=== PATIENT | male | born 1955 | race Caucasian/White ===

== ENCOUNTER 2017-10-01 11:33 | Emergency (ER) | payer OTHER ==
[2017-10-01 12:08] VITALS: TEMP 98.6; BMI 21.7
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
[2017-10-01] MEDS ORDERED: ACETAMINOPHEN 325 MG TABLET (FP) PO ONE ×2 (13:03→14:27)
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
[2017-10-01] MEDS ORDERED: ACETAMINOPHEN 325 MG TABLET (FP) ONE ×2 (14:24→14:32)
[2017-10-01 14:27] LABS: BASO % 0.5 % (0-2.0); EOS % 0.5 % (0-4.5); HEMATOCRIT 43.6 % (35.4-49); HEMOGLOBIN 15.1 GM/dL (11.7-16.9); LYMPH % 33.7 % (8-40); MCH 28.9 pg (25.7-33.7); MCHC 34.5 g/dl (32.0-35.9); MEAN CELL VOLUME 83.7 fl (80-96); MEAN PLT VOLUME 8.6 fl (7.5-11.1); MONO % 8.2 % (3.8-10.2); NEUT % 57.1 % (42.8-82.8); PLATELET COUNT 134 K/MM3 (134-434); RDW 13.2 % (11.9-15.9); WHITE BLOOD COUNT 8.4 K/mm3 (4.0-10.0)
[2017-10-01 14:46] LABS: ALBUMIN 4.1 g/dl (3.4-5.0); ANION GAP 10 (8-16); BILIRUBIN,TOTAL 1.5 mg/dL (0.2-1.0); BLOOD UREA NITROGEN 27 mg/dL (7-18); CALCIUM 9.6 mg/dL (8.5-10.1); CHLORIDE 103 mmol/L (98-107); CO2 26 mmol/L (21-32); CREATININE 0.9 mg/dL (0.7-1.3); GLUCOSE,RANDOM 102 mg/dL (74-106); SGPT/ALT 133 U/L (12-78); SODIUM 139 mmol/L (136-145); TOT PROT 8.3 g/dl (6.4-8.2)
[2017-10-01 14:48] LABS: ALK PHOS 157 U/L (45-117)
[2017-10-01 14:50] LABS: POTASSIUM 4.6 mmol/L (3.5-5.1); SGOT/AST 83 U/L (15-37)
[2017-10-01 18:41] VITALS: BP 133/77; PULSE 66
--- NOTE | 2017-10-02 11:41 | EKG ---
Test Reason : Blood Pressure : / mmHG Vent. Rate : 050 BPM Atrial Rate : 050 BPM P-R Int : 142 ms QRS Dur : 090 ms QT Int : 426 ms P-R-T Axes : 028 032 039 degrees QTc Int : 388 ms SINUS BRADYCARDIA OTHERWISE NORMAL ECG NO PREVIOUS ECGS AVAILABLE Confirmed by DUNCAN SAENZ MD ([id number]) on 10/02/2017 11:41:40 AM Referred By: Confirmed By:DUNCAN SAENZ MD
== END 2017-10-01 18:54 | disposition home or self-care (01) ==
LOC: JER 11:33
DX: R07.89 Other chest pain (principal); F17.210 Nicotine dependence, cigarettes, uncomplicated; B19.20 Unspecified viral hepatitis C without hepatic coma
CPT/HCPCS: 36415; 71046-TC-FY; 80053; 82550; 84484; 85025; 93005; 93010; 99284-25

== ENCOUNTER 2019-05-05 03:50 | Emergency (ER) | payer BC, OTHER ==
--- NOTE | 2019-05-05 04:08 | PDOC ---
Attending Attestation - Resident Resident Name: Isidro Melgar - ED Attending Attestation I have performed the following: I have examined & evaluated the patient, The case was reviewed & discussed with the resident, I agree w/resident's findings & plan - HPI HPI: 05/05/19 04:42 see resident hpi - Physicial Exam PE: 05/05/19 04:42 agree with resident exam - Medical Decision Making 05/05/19 04:43 63-year-old male requesting Xanax stating he ran out. 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
[2019-05-05 04:10] VITALS: BMI 21.7
[2019-05-05 04:34] LABS: BASO % 0.3 % (0-2.0); EOS % 0.3 % (0-4.5); HEMATOCRIT 37.2 % (35.4-49); HEMOGLOBIN 12.3 GM/dL (11.7-16.9); LYMPH % 26.3 % (8-40); MEAN CELL VOLUME 75.7 fl (80-96); MEAN PLT VOLUME 8.6 fl (7.5-11.1); MONO % 7.6 % (3.8-10.2); NEUT % 65.5 % (42.8-82.8); PLATELET COUNT 118 K/MM3 (134-434); RBC 4.91 M/mm3 (4.00-5.60); RDW 17.3 % (11.9-15.9); WHITE BLOOD COUNT 4.6 K/mm3 (4.0-10.0)
[2019-05-05] MEDS ORDERED: ALPRAZolam 1 MG TABLET PO PRN (04:34)
[2019-05-05] MEDS ORDERED: ALPRAZolam 1 MG TABLET ONE (04:36)
[2019-05-05 04:43] LABS: INR 1.15 (0.83-1.09); PROTHROMBIN TIME (PATIENT) 13.6 SEC (9.7-13.0)
[2019-05-05 04:52] LABS: ALBUMIN 3.9 g/dl (3.4-5.0); BILIRUBIN,TOTAL 0.6 mg/dL (0.2-1); BLOOD UREA NITROGEN 9.8 mg/dL (7-18); CALCIUM 9.3 mg/dL (8.5-10.1); CREATININE 0.6 mg/dL (0.55-1.3); TOT PROT 7.9 g/dl (6.4-8.2)
--- NOTE | 2019-05-05 05:11 | PDOC ---
History of Present Illness - General Chief Complaint: Headache Stated Complaint: HEADACHE Time Seen by Provider: 05/05/19 04:03 History Source: Patient Exam Limitations: No Limitations - History of Present Illness Initial Comments: 05/05/19 05:01 63M with a PMH of hep C and xanax dependence who presents to the ER stating that he ran out of his xanax. He states that he lost his last 3 days of his xanax. He describes a headache, loss of appetite, and chest pain which have all been going on for 2 days. He cannot describe any of these symptoms further. He states that he has an appointment with his psychiatrist on 05/06/19. Denies SOB, nausea, vomiting, fever, chills, vision changes, numbness, tingling, or weakness. Past History - Past Medical History Allergies/Adverse Reactions: Allergies Allergy/AdvReac Type Severity Reaction Status Date / Time morphine Allergy "clots up Verified 05/05/19 03:52 veins" Fish Containing Products AdvReac Severe Difficulty Verified 05/05/19 03:52 Breathing Home Medications: Ambulatory Orders Albuterol Sulfate Inhaler - [Ventolin HFA Inhaler -] 2 inh PO Q4H PRN MDD 8 01/19 Alprazolam [Xanax] 1 tab PO BID PRN MDD 2 02/06/18 Buprenorphine HCl/Naloxone HCl [Suboxone 8 mg-2 mg Sl Tablets] 1 tab SL TID 01/19 Alprazolam [Xanax] 1 mg PO Q12H #3 tablet MDD 2 05/05/19 Anemia: No Asthma: Yes Cancer: No Cardiac Disorders: No CVA: No COPD: Yes (uncertain) CHF: No Diabetes: No GI Disorders: Yes (colon polyps, hx constipation) Disorders: Yes (thinks has prostate problems) HTN: Yes Hypercholesterolemia: Yes Kidney Stones: (KIDNEY FAILURE.) Liver Disease: Yes (HEP C. CIRRHOSIS.) Seizures: No Thyroid Disease: No - Surgical History Orthopedic Surgery: Yes (left hip partial hip replacement 2014) - Psycho Social/Smoking Cessation Hx Smoking History: Current every day smoker Number of Cigarettes Smoked Daily: 10 Information on smoking cessation initiated: No Hx Alcohol Use: Yes (prev etoh use; stopped 7 yrs ago) Drug/Substance Use Hx: Yes Substance Use Type: Heroin (started age 13 yrs, has od'd 4 times, last use "10 yrs ago", no cocaine/mj) Hx Substance Use Treatment: Yes ([facility] graduate 2013) Review of Systems - Review of Systems Able to Perform ROS?: Yes Comments:: 05/05/19 05:11 GENERAL/CONSTITUTIONAL: No fever or chills. No weakness. HEAD, EYES, EARS, NOSE AND THROAT: No change in vision. No ear pain or discharge. No sore throat. CARDIOVASCULAR: + for chest pain. No palpitations or lightheadedness. RESPIRATORY: No cough, wheezing, shortness of breath, or hemoptysis. GASTROINTESTINAL: No abdominal pain, nausea, vomiting, diarrhea, or constipation. GENITOURINARY: No dysuria, frequency, hematuria, or change in urination. MUSCULOSKELETAL: No joint or muscle swelling or pain. No neck or back pain. SKIN: No rash or lesions. NEUROLOGIC: + for headache. No numbness, tingling, focal weakness, loss of consciousness, or change in strength/sensation. Is the patient limited Russian proficient: No *Physical Exam - Vital Signs Last Vital Signs Temp Pulse Resp BP Pulse Ox 98.2 F 77 16 144/90 100 05/05/19 03:53 05/05/19 03:53 05/05/19 03:53 05/05/19 03:53 05/05/19 03:53 - Physical Exam Comments: 05/05/19 05:12 GENERAL: Well developed, well nourished. Awake and alert. No acute distress. HEENT: Normocephalic, atraumatic. Hearing grossly normal. Moist mucous membranes. PERRLA, EOMI. No conjunctival pallor. Sclera are non-icteric. NECK: Supple. Full ROM. No JVD. CARDIOVASCULAR: Regular rate and rhythm. No murmurs, rubs, or gallops. PULMONARY: No evidence of respiratory distress. Lungs clear to auscultation bilaterally. No wheezing, rales or rhonchi. ABDOMINAL: Soft. Non-tender. Non-distended. No rebound or guarding. GENITOURINARY: No CVA tenderness bilaterally. MUSCULOSKELETAL: Normal range of motion at all joints. No bony deformities or tenderness. EXTREMITIES: No cyanosis. No clubbing. No edema. No calf tenderness or swelling. SKIN: Warm and dry. Normal capillary refill. No rashes. No jaundice. NEUROLOGICAL: Alert, awake, appropriate. Cranial nerves 2-12 grossly intact. Normal speech. Gait is normal without ataxia. PSYCHIATRIC: Cooperative. Good eye contact. Appropriate mood and affect. ED Treatment Course - LABORATORY CBC & Chemistry Diagram: 05/05/19 04:16 05/05/19 04:16 - ADDITIONAL ORDERS Additional order review: Laboratory Results 05/05/19 05/05/19 05/05/19 04:16 04:16 04:16 PT with INR 13.60 H INR 1.15 H Sodium 137 Potassium 4.0 Chloride 104 Carbon Dioxide 25 Anion Gap 8 BUN 9.8 Creatinine 0.6 Est GFR (CKD-EPI)AfAm 125.77 Est GFR (CKD-EPI)NonAf 108.52 Random Glucose 108 H Calcium 9.3 Total Bilirubin 0.6 AST 20 ALT 16 Alkaline Phosphatase 146 H Creatine Kinase 70 Troponin I < 0.02 Total Protein 7.9 Albumin 3.9 05/05/19 04:16 RBC 4.91 MCV 75.7 L MCHC 33.0 RDW 17.3 H MPV 8.6 D Neutrophils % 65.5 D Lymphocytes % 26.3 D Monocytes % 7.6 Eosinophils % 0.3 Basophils % 0.3 - RADIOLOGY Radiology Studies Ordered: Category Date Time Status CHEST X-RAY PORTABLE* [RAD] Stat Radiology 05/05/19 04:05 Ordered Medical Decision Making - Medical Decision Making 05/05/19 05:12 63M with a PMH of hep C who presents requesting a xanax refill. I-Stop checked and pt's history correlates with I-stop. Will give xanax until he sees his psychiatrist. Will obtain CTH. EKG unremarkable. Will r/o ACS w/ 1 troponin as pt has had symptoms for 2 days and has low likelihood to be ACS. 05/05/19 05:33 CTH negative. Trop negative. Will d/c with PCP f/u. Discharge - Discharge Information Problems reviewed: Yes Clinical Impression/Diagnosis: Atypical chest pain, History of substance use Condition: Good Disposition: HOME - Admission No - Additional Discharge Information Prescriptions: Alprazolam [Xanax] 1 mg PO Q12H #3 tablet MDD 2 - Follow up/Referral - Patient Discharge Instructions Patient Printed Discharge Instructions: Alprazolam Additional Instructions: Your ER visit is not complete until your follow up with your primary care physician. Please follow up with your primary care physician in 1-2 days. Please return to the ER if you have any signs or symptoms of chest pain, shortness of breath, uncontrollable fever, chills, nausea, vomiting, numbness, tingling, or weakness in any part of your body, changes in vision, or slurred speech. Please take your medications as prescribed. Please return to the ER if symptoms persist, worsen, or new symptoms arise. - Post Discharge Activity
[2019-05-05 05:38] VITALS: BP 125/86; PULSE 71; TEMP 98
--- NOTE | 2019-05-05 11:23 | EKG ---
Test Reason : Blood Pressure : / mmHG Vent. Rate : 067 BPM Atrial Rate : 067 BPM P-R Int : 154 ms QRS Dur : 088 ms QT Int : 382 ms P-R-T Axes : 044 057 051 degrees QTc Int : 403 ms NORMAL SINUS RHYTHM NORMAL ECG WHEN COMPARED WITH ECG OF 01-OCT-2017 13:14, NO SIGNIFICANT CHANGE WAS FOUND Confirmed by PARTH GRACE MD ([id number]) on 05/05/2019 11:22:54 AM Referred By: Confirmed By:PARTH GRACE MD
== END 2019-05-05 06:15 | disposition home or self-care (01) ==
LOC: JER 03:50
DX: R07.89 Other chest pain (principal); Z87.898 Personal history of other specified conditions; I10 Essential (primary) hypertension; E78.00 Pure hypercholesterolemia, unspecified; K74.60 Unspecified cirrhosis of liver; Z88.6 Allergy status to analgesic agent; Z91.013 Allergy to seafood
CPT/HCPCS: 36415; 70450-TC; 71045-TC-FY; 80053; 82550; 84484; 85025; 85610; 93005; 93010; 99282-25

== ENCOUNTER 2019-06-19 09:39 | Inpatient (IN) | payer OTHER ==
--- NOTE | 2019-06-19 09:44 | PDOC ---
History of Present Illness - General Chief Complaint: Pain, Acute Stated Complaint: ABDOMINAL PAIN Time Seen by Provider: 06/19/19 09:44 History Source: Patient Exam Limitations: No Limitations - History of Present Illness Initial Comments: 63 year old male with PMH HTN, heroine use (snorts, denied IVDU), suboxone use, liver cirrhosis 2/2 HCV, anxiety/depression on Xanax presented to ED for nausea/ vomiting/epigastric pain/generalized body aches since stopping using heroine and suboxone yesterday. Pt reported epigastric pain, constant, burning, no alleviating or aggravating factors. Pt reported he went to [facility] yesterday and was told to come back Friday for methadone maintenance. PCP: none ROS General: denied fever, chills, generalized weakness. HEENT: denied sore throat, rhinorrhea, ear pain. Cardiovascular: denied chest pain, palpitations, syncope, diaphoresis. Respiratory: denied shortness of breath, cough, sputum production, hemoptysis. Gastrointestinal: admitted to abdominal pain, nausea, vomiting. denied diarrhea , constipation, blood in stool. Genitourinary: denied dysuria, increased urinary frequency, hematuria, urinary incontinence, flank pain. Back: denied back pain. Musculoskeletal: denied joint pain, muscle pain, joint swelling. Neurological: denied headache, dizziness, numbness, tingling, weakness. Integumentary: denied rash, laceration, abrasion. Hematologic/Lymphatic: denied bruising or bleeding. PE Constitutional: Well-nourished, Well-developed, appearing stated age. HEENT: head is normocephalic, atraumatic. EOMI. PERRLA. no posterior pharyngeal erythema.no tonsillar swelling or exudates bilaterally. uvula midline. no peritonsillar swelling, tenderness or abscess. no jaw tenderness or misalignment. Neck: supple. Full ROM. Cardiovascular: regular heart rhythm. no murmurs. no pericardial friction rub. Respiratory: clear to auscultation bilaterally. no crackles, rhonchi or wheezing. no stridor. Gastrointestinal: soft, flat. mild tenderness to epigastrium. mccormick positive. normal bowel sounds. no rebound, guarding, masses. Extremities: peripheral pulses intact. no lower extremity edema. Neurological: CN 2-12 grossly intact. moves all four extremities. Psych: awake, alert, oriented x3. follows commands. answers questions appropriately. Past History - Past Medical History Allergies/Adverse Reactions: Allergies Allergy/AdvReac Type Severity Reaction Status Date / Time morphine Allergy "clots up Verified 05/05/19 03:52 veins" Fish Containing Products AdvReac Severe Difficulty Verified 05/05/19 03:52 Breathing Home Medications: Ambulatory Orders Albuterol Sulfate Inhaler - [Ventolin HFA Inhaler -] 2 inh PO Q4H PRN MDD 8 01/19 Clobetasol Propionate/Emoll [Clobetasol Emollient 0.05% Crm] 1 applic TP DAILY 06/20/19 Alprazolam [Xanax] 2 mg PO BID 06/21/19 Docusate Sodium [Colace] 100 mg PO DAILY 06/21/19 Mirtazapine [Remeron -] 15 mg PO DAILY 06/21/19 Quinapril HCl [Accupril] 40 mg PO BID 06/21/19 GI Disorders: Yes (colon polyps, hx constipation) HTN: Yes - Surgical History Orthopedic Surgery: Yes (left hip partial hip replacement 2014) - Psycho Social/Smoking Cessation Hx Smoking History: Current every day smoker Number of Cigarettes Smoked Daily: 10 Hx Alcohol Use: Yes (prev etoh use; stopped 7 yrs ago) Drug/Substance Use Hx: Yes Substance Use Type: Heroin (started age 13 yrs, has od'd 4 times, last use "10 yrs ago", no cocaine/mj) Hx Substance Use Treatment: Yes ([facility] graduate 2013) ED Treatment Course - LABORATORY CBC & Chemistry Diagram: 06/21/19 07:10 06/21/19 07:10 Medical Decision Making - Medical Decision Making 63 year old male with above PMH presented to ED for multiple complaints since stopping using heroine and stopping suboxone use. Initial Vital Signs Temp Pulse Resp BP Pulse Ox 103 F H 103 H 20 156/88 94 L 06/19/19 09:43 06/19/19 09:43 06/19/19 09:43 06/19/19 09:43 06/19/19 09:43 Febrile. Tachycardic. No tachypnea. Hypertensive. Mild hypoxia on room air. -Pt is a nicotine user Labs ordered: CBC, CMP, lipase, troponin, UA/UC, blood cultures, acetaminophen, salicylate, etoh, UDS Imaging ordered: CXR, RUQ US Medications ordered: tylenol IV, pepcid, normal saline bolus 1000 cc once, zofran 4 mg IV once, ketamine IV (0.3 mg/kg dosing) EKG performed at 112: rate 96, regular rhythm, normal axis, normal intervals, no acute ST changes. CXR report: Name: [facility] DEPARTMENT OF RADIOLOGY Phys: Nickie Chou RESIDENT : [id number] Age: 63 Sex: M [facility] Acct: [id number] Loc: [address] Exam Date: 06/19/19 Status: FABIAN [place] [id number] Unit Number: [id number] EXAM#: TYPE/EXAM: RESULT: [id number] RAD/CHEST X-RAY PORTABLE* Chest : Sepsis A single AP view of the chest has been submitted. Since the prior study of 2018, there is a slightly weaker inspiration and as a result of the cardiac silhouette appears slightly more prominent. This is slightly unfolded aorta, slight prominence of the hilar markings but clear lung [place]. An acute process is not seen. There is hand artifact projected over the left base and left heart. The angles are sharp. The soft tissues are intact. There are some degenerative changes with a scoliosis. Correlation recommended. Impression: No acute chest pathology. Left hand artifact. Reported By: Kenny Earl MD 06/19 1046 US report: US/ABDOMEN US -LIMITED Right upper quadrant abdomen ultrasound Clinical information: evaluate for cholecystitis, right upper quadrant/ epigastric pain No obvious interval change is seen in comparison to a previous ultrasound study of 03/05/2018. Cholelithiasis is noted. The gallbladder appears mildly contracted which may be on a physiologic basis versus secondary to chronic cholecystitis. As on the prior exam there is mild diffuse gallbladder wall thickening. No pericholecystic fluid is noted. The common bile duct diameter appears unremarkable measuring 0.3 cm. There is possible diffuse hepatic surface irregularity which if actually present would be indicative of cirrhosis. If clinically indicated confirmation utilizing CT or MRI may be performed. No gross mass lesion is identified. No free intraperitoneal fluid is seen. The pancreas could not be adequately evaluated due to bowel gas. There is no right hydronephrosis. Impression: No obvious interval change is seen in comparison to a 2018 ultrasound exam. Cholelithiasis is noted. Mild gallbladder contraction is again seen which may be physiologic in nature versus secondary to chronic cholecystitis. If clinically indicated correlate with one week follow -up sonography utilizing optimal preparative fasting. There is no definite biliary tract dilatation. Possible hepatic cirrhosis as noted above. The pancreas could not be evaluated due to obscuring bowel gas. Reported By: Ryan Garcia MD 06/19/19 1331 06/19/19 10:50 CBC WBC 11.0 K/mm3 (4.0-10.0) H 06/19/19 10:15 RBC 5.23 M/mm3 (4.00-5.60) 06/19/19 10:15 Hgb 12.3 GM/dL (11.7-16.9) 06/19/19 10:15 Hct 37.4 % (35.4-49) 06/19/19 10:15 MCV 71.5 fl (80-96) L 06/19/19 10:15 MCH 23.5 pg (25.7-33.7) L 06/19/19 10:15 MCHC 32.8 g/dl (32.0-35.9) 06/19/19 10:15 RDW 19.3 % (11.9-15.9) H 06/19/19 10:15 Plt Count 129 K/MM3 (134-434) L 06/19/19 10:15 MPV 8.4 fl (7.5-11.1) 06/19/19 10:15 Absolute Neuts (auto) 10.1 K/mm3 (1.5-8.0) H 06/19/19 10:15 Neutrophils % 91.4 % (42.8-82.8) H D 06/19/19 10:15 Lymphocytes % 5.0 % (8-40) L D 06/19/19 10:15 Monocytes % 2.8 % (3.8-10.2) L 06/19/19 10:15 Eosinophils % 0.1 % (0-4.5) 06/19/19 10:15 Basophils % 0.7 % (0-2.0) 06/19/19 10:15 Nucleated RBC % 0 % (0-0) 06/19/19 10:15 Mild leukocytosis with left shift. No anemia. Low MCV. CMP Lactic Acid 2.3 mmol/L (0.4-2.0) H* 06/19/19 10:15 Magnesium 2.0 mg/dL (1.8-2.4) 06/19/19 10:15 Lipase 258 U/L (73-393) 06/19/19 10:15 Additional normal saline bolus ordered. 06/19/19 11:00 CMP Sodium 135 mmol/L (136-145) L 06/19/19 10:15 Potassium 4.4 mmol/L (3.5-5.1) 06/19/19 10:15 Chloride 102 mmol/L (98-107) 06/19/19 10:15 Carbon Dioxide 25 mmol/L (21-32) 06/19/19 10:15 Anion Gap 8 MMOL/L (8-16) 06/19/19 10:15 BUN 17.3 mg/dL (7-18) 06/19/19 10:15 Creatinine 0.9 mg/dL (0.55-1.3) 06/19/19 10:15 Est GFR (CKD-EPI)AfAm 106.46 06/19/19 10:15 Est GFR (CKD-EPI)NonAf 91.86 06/19/19 10:15 Random Glucose 131 mg/dL (74-106) H 06/19/19 10:15 Calcium 9.0 mg/dL (8.5-10.1) 06/19/19 10:15 Total Bilirubin 1.4 mg/dL (0.2-1) H 06/19/19 10:15 AST 33 U/L (15-37) 06/19/19 10:15 ALT 24 U/L (13-61) 06/19/19 10:15 Alkaline Phosphatase 174 U/L (45-117) H 06/19/19 10:15 Troponin I < 0.02 ng/ml (0.00-0.05) 06/19/19 10:15 Total Protein 8.3 g/dl (6.4-8.2) H 06/19/19 10:15 Albumin 4.0 g/dl (3.4-5.0) 06/19/19 10:15 Mild hyponatremia - IVF running No JUAREZ. No transaminitis. T bili 1.4 06/19/19 11:35 Vital Signs Temperature 103.0 F H 06/19/19 11:30 Pulse Rate 94 H 06/19/19 11:30 Respiratory Rate 20 06/19/19 11:30 Blood Pressure 126/71 06/19/19 11:30 Tachycardia improving. Fever still present. Medications ordered: Toradol 15 mg IV once 06/19/19 12:28 Urine Test Results Urine Color Yellow 06/19/19 10:49 Urine Appearance Clear 06/19/19 10:49 Urine pH >= 9.0 (5.0-8.0) H D 06/19/19 10:49 Ur Specific [place] 1.019 (1.010-1.035) 06/19/19 10:49 Urine Protein Trace (NEGATIVE) 06/19/19 10:49 Urine Glucose (UA) Negative (NEGATIVE) 06/19/19 10:49 Urine Ketones Negative (NEGATIVE) 06/19/19 10:49 Urine Blood 1+ (NEGATIVE) H 06/19/19 10:49 Urine Nitrite Negative (NEGATIVE) 06/19/19 10:49 Urine Bilirubin Negative (NEGATIVE) 06/19/19 10:49 Ur Leukocyte Esterase Negative (NEGATIVE) 06/19/19 10:49 UDS positive for benzo, opioids. Negatie for UTI. VBG negative for acidosis. 06/19/19 13:32 Abdominal US reported. Radiology reported that the examination is similar to prior US, but pt is acutely in pain, febrile. Concern for acute cholecystitis. Will cover with Flagyl and Ceftraixone. Dr. Correa consulted. I spoke with Dr. Heredia about the patient, who accepted the patient for admission to med/surg. Pending admission. Discharge - Discharge Information Problems reviewed: Yes Clinical Impression/Diagnosis: Cholecystitis Condition: Stable - Admission Yes - Follow up/Referral - Patient Discharge Instructions - Post Discharge Activity
[2019-06-19] MEDS ORDERED: FAMOTIDINE 20 MG/50 ML IVPB 20 MG/50 ML MG IVPB ONE ×2 (10:01→10:27)
[2019-06-19] MEDS ORDERED: SODIUM CHLORIDE 1,000 ML IV STA ×2 (10:01→10:51)
[2019-06-19] MEDS ORDERED: ONDANSETRON 4 MG/2 ML VIAL IVPUSH ONE (10:01)
[2019-06-19] MEDS ORDERED: ACETAMINOPHEN 1000 MG/100 ML VIAL (NON FORMULARY) IVPB ONE (10:14)
--- NOTE | 2019-06-19 10:19 | PDOC ---
Attending Attestation - Resident Resident Name: Nickie Chou - ED Attending Attestation I have performed the following: I have examined & evaluated the patient, The case was reviewed & discussed with the resident, I agree w/resident's findings & plan - HPI HPI: 06/19/19 10:20 63-year-old male with history of hepatitis C, Xanax dependence, cirrhosis, HTN, anxiety, depression presenting with fever, nausea/vomiting/epigastric pain/ generalized body aches since stopping using heroine and suboxone yesterday. Pt reported epigastric pain, constant, burning, +sputum production and mild cough, no alleviating or aggravating factors. Pt reported he went to [facility] yesterday and was told to come back Friday for methadone maintenance. he admits to accidentally throwing out his xanax and prior suboxone. 06/19/19 13:51 - Physicial Exam PE: 06/19/19 10:19 Agree with the resident's HPI and PE as documented in the electronic medical record. malaised appearing, EOMI, PERRL, nl conjunctiva, anicteric; neck supple. lungs clear,+tachycardia, abdomen soft +diffuse abdominal tenderness, +epigastric And RUQ tenderness, +Arias's, no rebound, guarding. Back nontender. VILLALBA x4, no focal neuro deficits. No peripheral edema. normal color for ethnicity, WWP. 06/19/19 10:19 06/19/19 10:42 - Medical Decision Making 06/19/19 10:19 Vital Signs Temp Pulse Resp BP Pulse Ox 103 F H 103 H 20 156/88 94 L 06/19/19 09:43 06/19/19 09:43 06/19/19 09:43 06/19/19 09:43 06/19/19 09:43 Vital signs notable for fever T-max 103 and tachycardia 103, mildly hypertensive , oxygen saturation 94% on room air. DDx abdominal pain: Renal colic, biliary colic, metabolic/electrolyte derangements. GERD, PUD, esophageal spasm, pancreatitis, hepatitis, constipation , colitis, gastroenteritis, cholecystitis, UTI, pyelonephritis, ileus, SBO, medication side effect, hernia, appendicitis, diverticulitis, SBP. msk strain, mesenteric adenitis, psoas abscess. Given medications IV ketamine, tylenol/toradol, IVF with clinical improvement. All diagnostics tests reviewed labs and lytes with mild leukocytosis >11K, remainder of labs/LFTs/lipase normal. flu neg. cxr clear, no pna. Utox +benzo and opioids, c/w history. biliary sono +GBW thickening, multiple stones and sludge, cbd appears normal. 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 admit to medical service, surg cs, IVF/pain control, further imaging vs surgery. 06/19/19 13:51 06/19/19 14:47 Heart Score/ECG Review #1 ECG reviewed & interpreted by me at: 11:15 General ECG Interpretation: Sinus Rhythm, Normal Rate, Normal Intervals 06/19/19 11:40 EKG normal sinus rhythm at 96 bpm., no interval abnormalities, narrow QRS, ST and T wave segments and morphology normal. Nonspecific T wave abnormalities in III, PACs
[2019-06-19] MEDS ORDERED: ACETAMINOPHEN INJECTION 100 ML IVPB ONE (10:27)
[2019-06-19] MEDS ORDERED: ONDANSETRON 4 MG/2 ML VIAL ONE (10:27)
[2019-06-19 10:33] LABS: BASO % 0.7 % (0-2.0); EOS % 0.1 % (0-4.5); HEMATOCRIT 37.4 % (35.4-49); HEMOGLOBIN 12.3 GM/dL (11.7-16.9); MCH 23.5 pg (25.7-33.7); MCHC 32.8 g/dl (32.0-35.9); MEAN CELL VOLUME 71.5 fl (80-96); MEAN PLT VOLUME 8.4 fl (7.5-11.1); MONO % 2.8 % (3.8-10.2); NEUT % 91.4 % (42.8-82.8); PLATELET COUNT 129 K/MM3 (134-434); RBC 5.23 M/mm3 (4.00-5.60); RDW 19.3 % (11.9-15.9)
[2019-06-19] MEDS ORDERED: KETAMINE HCL 200 MG/20 ML VIAL IVPB ONE (10:40)
[2019-06-19 10:41] LABS: COCAINE, UR NEGATIVE ng/ml (CUTOFF=300); METHADONE, UR NEGATIVE ng/ml (CUTOFF=300); PHENCYCLIDINE,URINE NEGATIVE ng/ml (CUTOFF=25); URINE AMPHETAMINES NEGATIVE ng/ml (CUTOFF=500); URINE BARBITURATES NEGATIVE ng/ml (CUTOFF=200)
[2019-06-19 10:46] LABS: INR 1.23 (0.83-1.09); PROTHROMBIN TIME (PATIENT) 14.5 SEC (9.7-13.0)
[2019-06-19 10:50] LABS: OPIATES, URI POSITIVE ng/ml (CUTOFF=300); URINE BENZODIAZEPINES POSITIVE ng/ml (CUTOFF=200)
[2019-06-19 10:51] LABS: ALK PHOS 174 U/L (45-117); ANION GAP 8 MMOL/L (8-16); BILIRUBIN,TOTAL 1.4 mg/dL (0.2-1); BLOOD UREA NITROGEN 17.3 mg/dL (7-18); CHLORIDE 102 mmol/L (98-107); CO2 25 mmol/L (21-32); CREATININE 0.9 mg/dL (0.55-1.3); GLUCOSE,RANDOM 131 mg/dL (74-106); POTASSIUM 4.4 mmol/L (3.5-5.1); SGOT/AST 33 U/L (15-37); SGPT/ALT 24 U/L (13-61); SODIUM 135 mmol/L (136-145); TOT PROT 8.3 g/dl (6.4-8.2)
[2019-06-19 11:02] LABS: VENOUS PC02 43.5 mmHg (38-52); VENOUS PO2 < 49 mmHg (28-48)
[2019-06-19 11:19] LABS: EPI CELLS 3.5 /HPF (0-5/HPF); HYALINE CASTS 2 /lpf (0-8); PH,URINE >= 9.0 (5.0-8.0); URINE APPEARANCE CLEAR; URINE BACTERIA 6.5 /hpf (NEGATIVE); URINE BILIRUBIN NEGATIVE (NEGATIVE); URINE COLOR YELLOW; URINE GLUCOSE (UA) NEGATIVE (NEGATIVE); URINE KETONE NEGATIVE (NEGATIVE); URINE LEUK ESTERASE NEGATIVE (NEGATIVE); URINE NITRITE NEGATIVE (NEGATIVE); URINE PROTEIN TRACE (NEGATIVE); URINE RBC 9 /hpf (0-4); URINE WBC 1 /hpf (0-5)
[2019-06-19 11:21] LABS: ANISOCYTOSIS 2+; PLATELET ESTIMATE DECREASED
[2019-06-19] MEDS ORDERED: KETAMINE HCL 200 MG/20 ML VIAL ONE (11:23)
[2019-06-19] MEDS ORDERED: KETOROLAC TROMETHAMINE 15 MG/ML VIAL IVPUSH ONE (11:38)
[2019-06-19] MEDS ORDERED: KETOROLAC TROMETHAMINE 15 MG/ML VIAL ONE (11:44)
[2019-06-19] MEDS ORDERED: CEFTRIAXONE 1 GM in DEXTROSE 5%-WATER - 100 ML IVPB ONE (13:21)
[2019-06-19] MEDS ORDERED: SODIUM CHLORIDE 1,000 ML IV SCH (14:00)
[2019-06-19] MEDS ORDERED: CEFTRIAXONE 1 GM/50 ML BAG ONE (14:11)
--- NOTE | 2019-06-19 15:02 | HP ---
CHIEF COMPLAINT:abd pain, fever, PCP:NONE HISTORY OF PRESENT ILLNESS: Henry Goldman is a 63-year-old male with history of hepatitis C, Xanax dependence, cirrhosis, HTN, anxiety, depression presented to ED with c/o generalized body pain, epigastric pain, fever, n/v that started yesterday after pt stopped taking suboxone and heroine. ER records reviewed, pt seen in ED, unable to obtain history, pt medicated for pain, sedated. Arousable to tactile stimuli. no skin breakdown noted, no ascites, no cough observed. ER course was notable for: (1)Temp 103 (2)WBC 11.0 (3)US contracted GB Recent Travel: PAST MEDICAL HISTORY: Hepatitis C Anxiety Heroine abuse Cirrhosis HTN Depression PAST SURGICAL HISTORY: Social History: Smoking:unable to obtain Alcohol: Drugs: hx of heroine Allergies morphine Allergy (Verified 05/05/19 03:52) "clots up veins" Fish Containing Products Adverse Reaction (Severe, Verified 05/05/19 03:52) Difficulty Breathing HOME MEDICATIONS: Home Medications Medication Instructions Recorded Albuterol Sulfate Inhaler - 2 inh PO Q4H PRN MDD 8 02/06/18 [Ventolin HFA Inhaler -] Alprazolam [Xanax] 1 tab PO BID PRN MDD 2 02/06/18 Buprenorphine HCl/Naloxone HCl 1 tab SL TID 02/06/18 [Suboxone 8 mg-2 mg Sl Tablets] Alprazolam [Xanax] 1 mg PO Q12H #3 tablet MDD 2 05/05/19 REVIEW OF SYSTEMS unable to obtain, pt medicated for pain, asleep PHYSICAL EXAMINATION Vital Signs - 24 hr 06/19/19 06/19/19 06/19/19 09:43 11:30 13:41 Temperature 103 F H 103.0 F H 100.3 F H Pulse Rate 103 H Pulse Rate [ 94 H Apical] Respiratory 20 20 Rate Blood Pressure 156/88 Blood Pressure 126/71 [Left Arm] O2 Sat by Pulse 94 L 20 L Oximetry (%) GENERAL: asleep, arousable, not able to answer questions HEAD: Normal with no signs of trauma. EYES: Pupils equal, round and reactive to light, extraocular movements intact, sclera anicteric, conjunctiva clear. No lid lag. EARS, NOSE, THROAT: Ears normal, nares patent, oropharynx clear without exudates. Moist mucous membranes. NECK: Normal range of motion, supple without lymphadenopathy, JVD, or masses. LUNGS: Breath sounds equal, clear to auscultation bilaterally. No wheezes, and no crackles. No accessory muscle use. HEART: Regular rate and rhythm, normal S1 and S2 without murmur, rub or gallop. ABDOMEN: Soft, nontender, not distended, normoactive bowel sounds, no guarding, no rebound, no masses. No hepatomegaly or splenomegaly. MUSCULOSKELETAL: Normal range of motion at all joints. No bony deformities or tenderness. No CVA tenderness. UPPER EXTREMITIES: 2+ pulses, warm, well-perfused. No cyanosis. No clubbing. No peripheral edema. LOWER EXTREMITIES: 2+ pulses, warm, well-perfused. No calf tenderness. No peripheral edema. NEUROLOGICAL: deferred, pt asleep PSYCHIATRIC: Cooperative. Good eye contact. Appropriate mood and affect. SKIN: Warm, dry, normal turgor, no rashes or lesions noted, normal capillary refill. Laboratory Results - last 24 hr 06/19/19 06/19/19 06/19/19 10:06 10:15 10:15 WBC RBC Hgb Hct MCV MCH MCHC RDW Plt Count MPV Absolute Neuts (auto) Neutrophils % Neutrophils % (Manual) Band Neutrophils % Lymphocytes % Lymphocytes % (Manual) Monocytes % Monocytes % (Manual) Eosinophils % Eosinophils % (Manual) Basophils % Basophils % (Manual) Myelocytes % (Man) Promyelocytes % (Man) Blast Cells % (Manual) Nucleated RBC % Metamyelocytes Platelet Estimate Polychromasia Anisocytosis PT with INR 14.50 H INR 1.23 H PTT (Actin FS) 34.0 VBG pH 7.40 POC VBG pCO2 43.5 POC VBG pO2 < 49 H VBG HCO3 26.1 VBG O2 Sat (Adiel) 21.1 L VBG Base Excess 1.5 Sodium Potassium Chloride Carbon Dioxide Anion Gap BUN Creatinine Est GFR (CKD-EPI)AfAm Est GFR (CKD-EPI)NonAf Random Glucose Lactic Acid Calcium Magnesium Total Bilirubin AST ALT Alkaline Phosphatase Troponin I Total Protein Albumin Lipase Urine Color Urine Appearance Urine pH Ur Specific [place] Urine Protein Urine Glucose (UA) Urine Ketones Urine Blood Urine Nitrite Urine Bilirubin Urine Urobilinogen Ur Leukocyte Esterase Urine WBC (Auto) Urine RBC (Auto) Urine Casts (Auto) U Epithel Cells (Auto) Urine Bacteria (Auto) Salicylates < 1.7 L Opiates Screen Methadone Screen Acetaminophen Barbiturate Screen Phencyclidine Screen Ur Amphetamines Screen MDMA (Ecstasy) Screen Benzodiazepines Screen Cocaine Screen U Marijuana (THC) Screen Alcohol, Quantitative Influenza A (Rapid) Influenza B (Rapid) 06/19/19 06/19/19 06/19/19 10:15 10:15 10:15 WBC 11.0 H RBC 5.23 Hgb 12.3 Hct 37.4 MCV 71.5 L MCH 23.5 L MCHC 32.8 RDW 19.3 H Plt Count 129 L MPV 8.4 Absolute Neuts (auto) 10.1 H Neutrophils % 91.4 H D Neutrophils % (Manual) 91.0 H Band Neutrophils % 2.0 Lymphocytes % 5.0 L D Lymphocytes % (Manual) 2.0 L Monocytes % 2.8 L Monocytes % (Manual) 1 L Eosinophils % 0.1 Eosinophils % (Manual) 0.0 Basophils % 0.7 Basophils % (Manual) 0.0 Myelocytes % (Man) 0 Promyelocytes % (Man) 0 Blast Cells % (Manual) 0 Nucleated RBC % 0 Metamyelocytes 0 Platelet Estimate Decreased Polychromasia 1+ Anisocytosis 2+ PT with INR INR PTT (Actin FS) VBG pH POC VBG pCO2 POC VBG pO2 VBG HCO3 VBG O2 Sat (Adiel) VBG Base Excess Sodium 135 L Potassium 4.4 Chloride 102 Carbon Dioxide 25 Anion Gap 8 BUN 17.3 Creatinine 0.9 Est GFR (CKD-EPI)AfAm 106.46 Est GFR (CKD-EPI)NonAf 91.86 Random Glucose 131 H Lactic Acid Calcium 9.0 Magnesium Total Bilirubin 1.4 H AST 33 ALT 24 Alkaline Phosphatase 174 H Troponin I < 0.02 Total Protein 8.3 H Albumin 4.0 Lipase Urine Color Urine Appearance Urine pH Ur Specific [place] Urine Protein Urine Glucose (UA) Urine Ketones Urine Blood Urine Nitrite Urine Bilirubin Urine Urobilinogen Ur Leukocyte Esterase Urine WBC (Auto) Urine RBC (Auto) Urine Casts (Auto) U Epithel Cells (Auto) Urine Bacteria (Auto) Salicylates Opiates Screen Methadone Screen Acetaminophen --noresult-- Barbiturate Screen Phencyclidine Screen Ur Amphetamines Screen MDMA (Ecstasy) Screen Benzodiazepines Screen Cocaine Screen U Marijuana (THC) Screen Alcohol, Quantitative < 3.0 Influenza A (Rapid) Influenza B (Rapid) 06/19/19 06/19/19 06/19/19 10:15 10:15 10:15 WBC RBC Hgb Hct MCV MCH MCHC RDW Plt Count MPV Absolute Neuts (auto) Neutrophils % Neutrophils % (Manual) Band Neutrophils % Lymphocytes % Lymphocytes % (Manual) Monocytes % Monocytes % (Manual) Eosinophils % Eosinophils % (Manual) Basophils % Basophils % (Manual) Myelocytes % (Man) Promyelocytes % (Man) Blast Cells % (Manual) Nucleated RBC % Metamyelocytes Platelet Estimate Polychromasia Anisocytosis PT with INR INR PTT (Actin FS) VBG pH POC VBG pCO2 POC VBG pO2 VBG HCO3 VBG O2 Sat (Adiel) VBG Base Excess Sodium Potassium Chloride Carbon Dioxide Anion Gap BUN Creatinine Est GFR (CKD-EPI)AfAm Est GFR (CKD-EPI)NonAf Random Glucose Lactic Acid 2.3 H* Calcium Magnesium 2.0 Total Bilirubin AST ALT Alkaline Phosphatase Troponin I Total Protein Albumin Lipase 258 Urine Color Urine Appearance Urine pH Ur Specific [place] Urine Protein Urine Glucose (UA) Urine Ketones Urine Blood Urine Nitrite Urine Bilirubin Urine Urobilinogen Ur Leukocyte Esterase Urine WBC (Auto) Urine RBC (Auto) Urine Casts (Auto) U Epithel Cells (Auto) Urine Bacteria (Auto) Salicylates Opiates Screen Positive A* Methadone Screen Negative Acetaminophen Barbiturate Screen Negative Phencyclidine Screen Negative Ur Amphetamines Screen Negative MDMA (Ecstasy) Screen Negative Benzodiazepines Screen Positive A* Cocaine Screen Negative U Marijuana (THC) Screen Negative Alcohol, Quantitative Influenza A (Rapid) Influenza B (Rapid) 06/19/19 06/19/19 10:49 11:45 WBC RBC Hgb Hct MCV MCH MCHC RDW Plt Count MPV Absolute Neuts (auto) Neutrophils % Neutrophils % (Manual) Band Neutrophils % Lymphocytes % Lymphocytes % (Manual) Monocytes % Monocytes % (Manual) Eosinophils % Eosinophils % (Manual) Basophils % Basophils % (Manual) Myelocytes % (Man) Promyelocytes % (Man) Blast Cells % (Manual) Nucleated RBC % Metamyelocytes Platelet Estimate Polychromasia Anisocytosis PT with INR INR PTT (Actin FS) VBG pH POC VBG pCO2 POC VBG pO2 VBG HCO3 VBG O2 Sat (Adiel) VBG Base Excess Sodium Potassium Chloride Carbon Dioxide Anion Gap BUN Creatinine Est GFR (CKD-EPI)AfAm Est GFR (CKD-EPI)NonAf Random Glucose Lactic Acid Calcium Magnesium Total Bilirubin AST ALT Alkaline Phosphatase Troponin I Total Protein Albumin Lipase Urine Color Yellow Urine Appearance Clear Urine pH >= 9.0 H D Ur Specific [place] 1.019 Urine Protein Trace Urine Glucose (UA) Negative Urine Ketones Negative Urine Blood 1+ H Urine Nitrite Negative Urine Bilirubin Negative Urine Urobilinogen 1.0 Ur Leukocyte Esterase Negative Urine WBC (Auto) 1 Urine RBC (Auto) 9 Urine Casts (Auto) 2 U Epithel Cells (Auto) 3.5 Urine Bacteria (Auto) 6.5 Salicylates Opiates Screen Methadone Screen Acetaminophen Barbiturate Screen Phencyclidine Screen Ur Amphetamines Screen MDMA (Ecstasy) Screen Benzodiazepines Screen Cocaine Screen U Marijuana (THC) Screen Alcohol, Quantitative Influenza A (Rapid) Negative Influenza B (Rapid) Negative ASSESSMENT/PLAN: Henry Goldman is a 63 yr old M, medical condition hepatitis C, heroine use, Xanax dependence, cirrhosis, HTN, anxiety, depression admitted for Admitting Diagnosis Acute on chronic Cholecystitis Chronic Condition Hep C Heroine abuse Depression Anxiety Cirrhosis A/P: #Acute on chronic Cholecystitis -NPO -Pain mgt-toradol PRN -Surgery consult (d/w Dr. Correa in ED) -US abd -mild contraction of GB, physiologic vs chronic cholecystitis -HIDA scan -received IV Rocephin, Flagyl in ED- will cont #Fever, unknown source -WBC 11, Temp 103 -UA neg -chest xray no acute process -Blood cx in process -will order CT abd/pelvis #hx Hep C #Cirrhosis,chronic -LFTS wnl -T. Bili 1.4 -monitor labs #Depression,chronic #Anxiety -c/w xanax #hx heroine use -pt last use yesterday -also on suboxone Full Code FEN Fluid: IVF Electrolytes: replete PRN Nutrition: NPO DVT prophylaxis Heparin SQ Visit type - Emergency Visit Emergency Visit: Yes ED Registration Date: 06/19/19 Care time: The patient presented to the Emergency Department on the above date and was hospitalized for further evaluation of their emergent condition. - New Patient This patient is new to me today: Yes Date on this admission: 06/19/19 - Critical Care Critical Care patient: No
[2019-06-19] MEDS: SODIUM CHLORIDE 1,000 ML IV SCH ×2 (16:31→17:47)
[2019-06-19 18:01] VITALS: BMI 23.6
[2019-06-19] MEDS: KETOROLAC TROMETHAMINE 15 MG/ML VIAL IVPUSH PRN (20:26)
[2019-06-19] MEDS: ALPRAZolam 1 MG TABLET PO PRN (21:06)
--- NOTE | 2019-06-19 22:01 | CONSULT ---
Consult Consult Specialty:: General Surgery Referred by:: Joaquín Chou Reason for Consultation:: cholecystitis - History of Present Illness Chief Complaint: epigastric pain, n/v, f/c History of Present Illness: 63yo M with HTN, hep C, cirrhosis, asthma, anxiety, depression, heroin abuse, last shot something he thought was heroin into left hand few days ago, which made him "very sick" - N/V, epigastric pain, fever/chills. He uses heroin by snorting (and sometimes IV use) at times, despite being on suboxone for 5 years , until 1-2 weeks ago, when he decided to stop using it altogether after a disagreement with his doctor. He also had a left hip replacement several months ago, and has chronic low back disc problems, for which he takes percocet about once daily (prn), which he last had yesterday but is now out. He came to ER and still had vomiting today. In ER, he had fever 103, wbc 11 left-shifted, elevated bili 1.4 and mild alk phos elevation, normal lipase and AST/ALT, no UTI , and was tender epigastric and RUQ. He had US showing gallstones and mildly contracted gallbladder, similar to 16 mos prior, with mildly thickened wall ( physiologic vs chronic), normal cbd, and cirrhotic appearing liver. He was given IV fluids, antibiotics, antiemetic and H2 pritesh, ketamine and now toradol for pain. He is admitted to medicine with CT and HIDA pending. Surgery was asked to assess. He is seen and examined in bed. He complains of headache, nausea and heartburn, as well as epigastric pain. Lactate is 1.8. Temp is now 99s. He reports last BM 2 days ago, denies constipation or diarrhea. No recent cold/illness, occasional palpitations, some SOB on exertion/climbing stairs. He also has psoriasis in areas. He states he has a small boil/abscess in left perianal area that is chronic and occasionally flares, which smells badly when he is able to make it drain/open with warm water and sometimes squeezing it. It does not appear to be present at this time. - History Source History Provided By: Patient Limitations to Obtaining History: No Limitations - Past Medical History Cardio/Vascular: Yes: HTN Pulmonary: Yes: Asthma Gastrointestinal: Yes: Other (h/o venous clipping on EGD) Hepatobiliary: Yes: Cirrhosis, Hepatitis C Psych: Yes: Addictions (heroin), Anxiety, Depression Musculoskeletal: Yes: Chronic low back pain (L4-5 back problems) Dermatology: Yes: Psoriasis - Past Surgical History Past Surgical History: Yes: Colonoscopy (earlier this year), Joint Replacement ( left hip few months ago), Upper Endoscopy - Alcohol/Substance Use Hx Alcohol Use: Yes (drank for 40 yrs, stopped 2005) History of Substance Use: reports: Heroin (snort and IV use - last few days ago ("someone gave me something that made me very sick")), Prescription (xanax). 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 Home Medications - Allergies Allergies/Adverse Reactions: Allergies Allergy/AdvReac Type Severity Reaction Status Date / Time morphine Allergy "clots up Verified 05/05/19 03:52 veins" Fish Containing Products AdvReac Severe Difficulty Verified 05/05/19 03:52 Breathing - Home Medications Home Medications: Ambulatory Orders Albuterol Sulfate Inhaler - [Ventolin HFA Inhaler -] 2 inh PO Q4H PRN MDD 8 01/19 Alprazolam [Xanax] 1 tab PO BID PRN MDD 2 02/06/18 Buprenorphine HCl/Naloxone HCl [Suboxone 8 mg-2 mg Sl Tablets] 1 tab SL TID 01/19 Alprazolam [Xanax] 1 mg PO Q12H #3 tablet MDD 2 05/05/19 Home Medications (free text): Pt reports Xanax is 2 MG BID for 5 years, from Dr. Lopez at [facility]. He also uses Percocet prn for back/hip pain, usually about once a day. Inhaler use for asthma 1-2x daily, last yesterday. Stopped Suboxone use 1-2 weeks ago. Family Medical History Family History: Unremarkable (noncontributory) Review of Systems - Review of Systems Constitutional: reports: Chills, Fever Eyes: denies: Blurred Vision, Recent Change in Vision HENT: denies: Difficult Swallowing, Throat Pain Neck: denies: Swollen Glands, Tenderness Cardiovascular: reports: Palpitations (occasionally). denies: Chest Pain Respiratory: reports: SOB on Exertion. denies: Cough, SOB Gastrointestinal: reports: Abdominal Pain (with hpi), Indigestion, Nausea (with hpi), Vomiting (with hpi). denies: Constipation, Diarrhea Genitourinary: denies: Burning, Dysuria Musculoskeletal: reports: Back Pain, Joint Pain (left hip). denies: Muscle Pain Integumentary: reports: Other (psoriasis elbows, waistline). denies: Change in Color, Rash Neurological: reports: Headache. denies: Dizziness Psychiatric: reports: Anxiety, Depression Physical Exam Vital Signs: Vital Signs Temperature 99.4 F 06/19/19 18:00 Pulse Rate 78 06/19/19 18:00 Respiratory Rate 16 06/19/19 18:06 Blood Pressure 116/64 06/19/19 18:00 O2 Sat by Pulse Oximetry (%) 97 06/19/19 18:06 Constitutional: Yes: Well Nourished, No Distress, Calm Eyes: Yes: Conjunctiva Clear, EOM Intact. No: Sclera Icterus HENT: Yes: Atraumatic, Normocephalic Neck: Yes: Supple, Trachea Midline Cardiovascular: Yes: Regular Rate and Rhythm Respiratory: Yes: Regular, CTA Bilaterally Gastrointestinal: Yes: Normal Bowel Sounds, Soft, Tenderness (RUQ), Tenderness, Epigastrium. No: Distention, Tenderness, Rebound (no rebound or guarding) ...Rectal Exam: Yes: Deferred. No: Hemorrhoids/External, Inflammation Renal/: No: CVA Tenderness - Left, CVA Tenderness - Right Musculoskeletal: No: Joint Stiffness, Joint Swelling Extremities: Yes: Other (psoriasis on left elbow, small patches on other areas) . No: Cool, Cyanosis Edema: No Peripheral Pulses WNL: Yes Integumentary: Yes: Tattoos. No: Jaundice, Rash Neurological: Yes: Alert, Oriented Psychiatric: Yes: Alert, Oriented Labs: CBC, BMP 06/19/19 10:15 06/19/19 10:15 CMP Sodium 135 mmol/L (136-145) L 06/19/19 10:15 Potassium 4.4 mmol/L (3.5-5.1) 06/19/19 10:15 Chloride 102 mmol/L (98-107) 06/19/19 10:15 Carbon Dioxide 25 mmol/L (21-32) 06/19/19 10:15 Anion Gap 8 MMOL/L (8-16) 06/19/19 10:15 BUN 17.3 mg/dL (7-18) 06/19/19 10:15 Creatinine 0.9 mg/dL (0.55-1.3) 06/19/19 10:15 Est GFR (CKD-EPI)AfAm 106.46 06/19/19 10:15 Est GFR (CKD-EPI)NonAf 91.86 06/19/19 10:15 Random Glucose 131 mg/dL (74-106) H 06/19/19 10:15 Lactic Acid 1.8 mmol/L (0.4-2.0) 06/19/19 19:39 Calcium 9.0 mg/dL (8.5-10.1) 06/19/19 10:15 Magnesium 2.0 mg/dL (1.8-2.4) 06/19/19 10:15 Total Bilirubin 1.4 mg/dL (0.2-1) H 06/19/19 10:15 AST 33 U/L (15-37) 06/19/19 10:15 ALT 24 U/L (13-61) 06/19/19 10:15 Alkaline Phosphatase 174 U/L (45-117) H 06/19/19 10:15 Troponin I < 0.02 ng/ml (0.00-0.05) 06/19/19 10:15 Total Protein 8.3 g/dl (6.4-8.2) H 06/19/19 10:15 Albumin 4.0 g/dl (3.4-5.0) 06/19/19 10:15 Lipase 258 U/L (73-393) 06/19/19 10:15 INR, PTT INR 1.23 (0.83-1.09) H 06/19/19 10:15 Urine Test Results Urine Color Yellow 06/19/19 10:49 Urine Appearance Clear 06/19/19 10:49 Urine pH >= 9.0 (5.0-8.0) H D 06/19/19 10:49 Ur Specific [place] 1.019 (1.010-1.035) 06/19/19 10:49 Urine Protein Trace (NEGATIVE) 06/19/19 10:49 Urine Glucose (UA) Negative (NEGATIVE) 06/19/19 10:49 Urine Ketones Negative (NEGATIVE) 06/19/19 10:49 Urine Blood 1+ (NEGATIVE) H 06/19/19 10:49 Urine Nitrite Negative (NEGATIVE) 06/19/19 10:49 Urine Bilirubin Negative (NEGATIVE) 06/19/19 10:49 Ur Leukocyte Esterase Negative (NEGATIVE) 06/19/19 10:49 Imaging - Results Chest X-ray: Report Reviewed (no acute pathology) Cat Scan: Pending Ultrasound: Report Reviewed, Image Reviewed (+ gallstones, contracted gallbladder with mild wall thickening, cbd not dilated, similar to 16 mos prior ; cirrhotic liver) Other: Pending (HIDA) Problem List - Problems (1) Cholelithiasis and cholecystitis without obstruction Assessment/Plan: admitted to medicine NPO except meds/IVF on IV antibiotics somewhat contracted gallbladder with cholelithiasis - may or may not represent cholecystitis given epigastric and RUQ tenderness, agree with treating as cholecystitis for now pain meds prn - toradol given shortly ago, avoid narcotics (though given h/o daily percocet use, may need to consider small dose) antacid, antiemetic continue home meds (inhaler, xanax) except suboxone trend labs CT and HIDA pending f/u studies if HIDA positive, and cholecystectomy seems indicated, would consider discussing with HPB at tertiary center prior to operation here, given cirrhosis will follow with you Code(s): K80.10 - CALCULUS OF GALLBLADDER W CHRONIC CHOLECYST W/O OBSTRUCTION Qualifiers: Cholelithiasis location: gallbladder Cholecystitis acuity: unspecified acuity Qualified Code(s): K80.10 - Calculus of gallbladder with chronic cholecystitis without obstruction (2) Epigastric abdominal pain Code(s): R10.13 - EPIGASTRIC PAIN (3) Nausea & vomiting Code(s): R11.2 - NAUSEA WITH VOMITING, UNSPECIFIED (4) Compensated cirrhosis related to hepatitis C virus (HCV) Assessment/Plan: pt would like to know "if I still have Hep C?" Code(s): K74.69 - OTHER CIRRHOSIS OF LIVER; B19.20 - UNSPECIFIED VIRAL HEPATITIS C WITHOUT HEPATIC COMA (5) Anxiety Code(s): F41.9 - ANXIETY DISORDER, UNSPECIFIED (6) Asthma Code(s): J45.909 - UNSPECIFIED ASTHMA, UNCOMPLICATED Qualifiers: Asthma severity: mild Asthma persistence: intermittent Asthma complication type: uncomplicated Qualified Code(s): J45.20 - Mild intermittent asthma, uncomplicated (7) Hypertension Code(s): I10 - ESSENTIAL (PRIMARY) HYPERTENSION Qualifiers: Hypertension type: essential hypertension Qualified Code(s): I10 - Essential (primary) hypertension
[2019-06-19] MEDS ORDERED: ALBUTEROL SO4 8 GM HFA INHALER IH PRN (22:40)
[2019-06-19] MEDS: FAMOTIDINE 20 MG/50 ML IVPB 20 MG/50 ML MG IVPB SCH (23:13)
[2019-06-19] MEDS: ONDANSETRON 4 MG/2 ML VIAL IVPUSH PRN (23:20)
[2019-06-20] MEDS ORDERED: MORPHINE SULFATE 2 MG/ML VIAL IM ONE (02:01)
[2019-06-20] MEDS ORDERED: MORPHINE SULFATE 2 MG/ML VIAL IVPUSH ONE (02:19)
[2019-06-20] MEDS: KETOROLAC TROMETHAMINE 15 MG/ML VIAL IVPUSH PRN ×3 (04:02→21:42)
[2019-06-20] MEDS: SODIUM CHLORIDE 1,000 ML IV SCH ×3 (06:39→15:50)
[2019-06-20] MEDS: ALPRAZolam 1 MG TABLET PO PRN ×2 (08:02→20:37)
[2019-06-20 08:04] LABS: HEMATOCRIT 32.9 % (35.4-49); HEMOGLOBIN 10.8 GM/dL (11.7-16.9); MCH 23.4 pg (25.7-33.7); MCHC 32.8 g/dl (32.0-35.9); MEAN CELL VOLUME 71.5 fl (80-96); MEAN PLT VOLUME 8.5 fl (7.5-11.1); PLATELET COUNT 89 K/MM3 (134-434); RDW 19.2 % (11.9-15.9); WHITE BLOOD COUNT 11.3 K/mm3 (4.0-10.0)
[2019-06-20 08:21] LABS: ALBUMIN 3.1 g/dl (3.4-5.0); BILIRUBIN,TOTAL 1.2 mg/dL (0.2-1); BLOOD UREA NITROGEN 12.6 mg/dL (7-18); CALCIUM 8.5 mg/dL (8.5-10.1); CREATININE 0.8 mg/dL (0.55-1.3); MAGNESIUM 2.1 mg/dL (1.8-2.4); POTASSIUM 4.2 mmol/L (3.5-5.1); TOT PROT 6.8 g/dl (6.4-8.2)
[2019-06-20] MEDS ORDERED: cefTRIAXone SODIUM 1 GM VIAL ONE (09:44)
[2019-06-20] MEDS ORDERED: DEXTROSE 5%-WATER - 50 ML IVPB ONE (09:44)
[2019-06-20] MEDS: FAMOTIDINE 20 MG/50 ML IVPB 20 MG/50 ML MG IVPB SCH ×2 (09:52→21:42)
[2019-06-20] MEDS: CEFTRIAXONE 1 GM in DEXTROSE 5%-WATER - 50 ML IVPB SCH (09:53)
--- NOTE | 2019-06-20 12:18 | PN ---
Progress Note (short form) - Note Progress Note: Subjective: no fever or chills. has no ABd pain , wants his xanax 2 mg BID. last use of heroin was 5-10 day ago , he injected in L hand. last use of suboxone was 1 month ago. he claims that he gets xanax monthly and he is due to receive it on of this month. he ran out reports possibly passing stones as he had pain in his penis with urination x 2 yesterday with blood seen on underwear. now asymptomatic Objective: Vital Signs: Last Vital Signs Temp Pulse Resp BP Pulse Ox 98.4 F 67 20 149/86 97 06/20/19 10:00 06/20/19 10:00 06/20/19 10:00 06/20/19 10:00 06/19/19 21:00 Laboratory Results - last 24 hr 06/19/19 06/19/19 06/20/19 11:45 19:39 07:15 WBC 11.3 H RBC 4.60 Hgb 10.8 L Hct 32.9 L MCV 71.5 L MCH 23.4 L MCHC 32.8 RDW 19.2 H Plt Count 89 L D MPV 8.5 Sodium Potassium Chloride Carbon Dioxide Anion Gap BUN Creatinine Est GFR (CKD-EPI)AfAm Est GFR (CKD-EPI)NonAf Random Glucose Lactic Acid 1.8 Calcium Magnesium Total Bilirubin AST ALT Alkaline Phosphatase Total Protein Albumin Influenza A (Rapid) Negative Influenza B (Rapid) Negative 06/20/19 07:15 WBC RBC Hgb Hct MCV MCH MCHC RDW Plt Count MPV Sodium 140 Potassium 4.2 Chloride 110 H Carbon Dioxide 23 Anion Gap 6 L BUN 12.6 Creatinine 0.8 Est GFR (CKD-EPI)AfAm 111.74 Est GFR (CKD-EPI)NonAf 96.41 Random Glucose 87 Lactic Acid Calcium 8.5 Magnesium 2.1 Total Bilirubin 1.2 H AST 17 ALT 16 Alkaline Phosphatase 132 H Total Protein 6.8 Albumin 3.1 L Influenza A (Rapid) Influenza B (Rapid) Physical Exam: NAD, very comfortable CV : RRR, no MRG Lungs: CATB ABd: soft, TTP in epigastric area. No rebound tenderness or guarding. Ext : No edema . L dorsal hand track martinez and bruises. L elbow scales Assessment/Plan: 63 y/o man with h/o Hep C, cirrhosis, ASthma, depression, heroin abuse ( IV and snorting), who presented with abd pain, N/V. 1- Sepsis: ? sx ( N/V abd pain ) could be due to cholecystitis but also form withdrawal sx as he ran out of xanax. need to r/o bacteremia as he injects IV heroin - he looks comfortable with no sx now. slight tenderness in epigastic area on exam - HIDA for tomorrow - NPO for now, unless Sx is oK with clears fro today - follow blood cx. - cont ceftriaxone and flagyl 2- H/o heroin abuse : - stopped Suboxone 1 month ago, and last use of IV heroin 5-10 days ago - no signs of withdrawal - hold off any methadone - substance consult 3- XAnax dependence: - He claims he is due for refill on . - I called [facility]. No xanax was prescribed - Tomorrow, will try to reach the prescribing doctor ( Dr. Quintana ) - as per ER records on 05/05. he was given 3 day worth of xanax to follow withhis . on that day, he was I-stoped and was found to be on xanax. unfortunately, i can't access IStop now - for now will cont 1 mg PRn, until tomorrow 4-microcytic anemia: order iron studies . OB 5- h/ asthma 6- H/o PSoriasis 7- H/o HEp c , cirrhosis. DVT PX : add heparin sq Visit type - Emergency Visit Emergency Visit: Yes ED Registration Date: 06/19/19 Care time: The patient presented to the Emergency Department on the above date and was hospitalized for further evaluation of their emergent condition. - New Patient This patient is new to me today: No - Critical Care Critical Care patient: No
[2019-06-20] MEDS: HEPARIN NA (PORCINE) 5,000 UNITS/ML 1ML VIAL SQ SCH ×2 (14:38→21:42)
--- NOTE | 2019-06-20 15:25 | PN ---
Progress Note, Physician History of Present Illness: Pt with question of cholecystitis vs abdominal pain related to substance withdrawal/abuse. Bili and alk phos down today, not quite normal. Medicine team note reviewed. He is seen and examined sittting up on edge of bed. No fevers, reports having just had normal BM and voided in bathroom. Last night, he states he painfully passed two "rocks" and some blood when urinating, and then felt much better. He now reports his abdominal pain is mainly suprapubic, no longer epigastric. No more nausea; he would like to be able to eat. He is still asking for his 2mg dose of Xanax. States he is feeling weak overall. - Current Medication List Current Medications: Active Medications Albuterol Sulfate (Ventolin Hfa Inhaler -) 2 puff IH Q4H PRN PRN Reason: ASTHMA Alprazolam (Xanax) 1 mg PO Q12H PRN PRN Reason: ANXIETY Last Admin: 06/20/19 08:02 Dose: 1 mg Heparin Sodium (Porcine) (Heparin -) 5,000 unit SQ TID GERALD Last Admin: 06/20/19 14:38 Dose: 5,000 unit Ceftriaxone Sodium 1 gm/ (Dextrose) 50 mls @ 100 mls/hr IVPB DAILY [facility]; Protocol Last Admin: 06/20/19 09:53 Dose: 100 mls/hr Metronidazole (Flagyl 500mg Premixed Ivpb -) 500 mg in 100 mls @ 100 mls/hr IVPB Q8H-IV GERALD Last Admin: 06/20/19 09:54 Dose: 100 mls/hr Famotidine/Sodium Chloride (Pepcid 20 Mg Premixed Ivpb -) 20 mg in 50 mls @ 100 mls/hr IVPB BID GERALD Last Admin: 06/20/19 09:52 Dose: 100 mls/hr Sodium Chloride (Normal Saline -) 1,000 mls @ 75 mls/hr IV ASDIR GERALD Ketorolac Tromethamine (Toradol Injection -) 15 mg IVPUSH Q6H PRN PRN Reason: PAIN LEVEL 6-10 Stop: 06/24/19 14:46 Last Admin: 06/20/19 04:02 Dose: 15 mg Non-Formulary Medication (Buprenorphine Hcl/Naloxone Hcl [Suboxone 8 Mg-2 Mg Sl Tablets]) 1 tab SL TID GERALD Ondansetron HCl (Zofran Injection) 4 mg IVPUSH Q6H PRN PRN Reason: NAUSEA Last Admin: 06/19/19 23:20 Dose: 4 mg - Objective Vital Signs: Vital Signs Temperature 98.4 F 06/20/19 10:00 Pulse Rate 67 06/20/19 10:00 Respiratory Rate 20 06/20/19 10:00 Blood Pressure 149/86 06/20/19 10:00 O2 Sat by Pulse Oximetry (%) 97 06/20/19 09:00 Constitutional: Yes: Well Nourished, No Distress, Calm Eyes: Yes: Conjunctiva Clear, EOM Intact. No: Sclera Icterus HENT: Yes: Atraumatic, Normocephalic Gastrointestinal: Yes: Soft, Tenderness (mostly suprapubic, less other quadrants , minimal RUQ, none epigastric - no rebound/guarding). No: Distention, Tenderness, Epigastrium Extremities: No: Cool, Cyanosis Integumentary: No: Jaundice, Rash Neurological: Yes: Alert, Oriented Labs: CBC, BMP 06/20/19 07:15 06/20/19 07:15 CMP Sodium 140 mmol/L (136-145) 06/20/19 07:15 Potassium 4.2 mmol/L (3.5-5.1) 06/20/19 07:15 Chloride 110 mmol/L (98-107) H 06/20/19 07:15 Carbon Dioxide 23 mmol/L (21-32) 06/20/19 07:15 Anion Gap 6 MMOL/L (8-16) L 06/20/19 07:15 BUN 12.6 mg/dL (7-18) 06/20/19 07:15 Creatinine 0.8 mg/dL (0.55-1.3) 06/20/19 07:15 Est GFR (CKD-EPI)AfAm 111.74 06/20/19 07:15 Est GFR (CKD-EPI)NonAf 96.41 06/20/19 07:15 Random Glucose 87 mg/dL (74-106) 06/20/19 07:15 Lactic Acid 1.8 mmol/L (0.4-2.0) 06/19/19 19:39 Calcium 8.5 mg/dL (8.5-10.1) 06/20/19 07:15 Magnesium 2.1 mg/dL (1.8-2.4) 06/20/19 07:15 Total Bilirubin 1.2 mg/dL (0.2-1) H 06/20/19 07:15 AST 17 U/L (15-37) 06/20/19 07:15 ALT 16 U/L (13-61) 06/20/19 07:15 Alkaline Phosphatase 132 U/L (45-117) H 06/20/19 07:15 Troponin I < 0.02 ng/ml (0.00-0.05) 06/19/19 10:15 Total Protein 6.8 g/dl (6.4-8.2) 06/20/19 07:15 Albumin 3.1 g/dl (3.4-5.0) L 06/20/19 07:15 Lipase 258 U/L (73-393) 06/19/19 10:15 platelets down a bit wbc sideways renal function good bili/alk phos down - ....Imaging Cat Scan: Image Reviewed (report pending - gallbladder does not appear inflamed or markedly enlarged; L hip prosthesis limits pelvic evaluation, cannot appreciate any ureteral stones or hydro, but study was done with IV contrast as well) Problem List - Problems (1) Cholelithiasis and cholecystitis without obstruction Assessment/Plan: admitted to medicine on IV antibiotics somewhat contracted gallbladder with cholelithiasis on US - may or may not represent cholecystitis? CT does not appear suggestive of cholecystitis, report pending epigastric and RUQ tenderness much improved - now suprapubic pain/tenderness, no nausea, + bowel function reportedly passed ureteral stones yesterday with subjective relief afterward pt with h/o Hep C and cirrhosis low suspicion for biliary pathology as primary source of symptoms will start clear liquids and reduce IV fluids trend labs HIDA ordered - would need to be NPO after MN for study given improvement in symptoms and resolution of epigastric/RUQ tenderness, consider advancing diet in am to regular if tolerating clears tonight instead, and deferring HIDA in case of diet intolerance/recurrence of biliary pain pattern will discuss with Dr. Heredia Code(s): K80.10 - CALCULUS OF GALLBLADDER W CHRONIC CHOLECYST W/O OBSTRUCTION Qualifiers: Cholelithiasis location: gallbladder Cholecystitis acuity: unspecified acuity Qualified Code(s): K80.10 - Calculus of gallbladder with chronic cholecystitis without obstruction (2) Epigastric abdominal pain Assessment/Plan: resolved Code(s): R10.13 - EPIGASTRIC PAIN (3) Nausea & vomiting Assessment/Plan: resolved Code(s): R11.2 - NAUSEA WITH VOMITING, UNSPECIFIED (4) 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
--- NOTE | 2019-06-20 17:07 | EKG ---
Test Reason : Blood Pressure : / mmHG Vent. Rate : 096 BPM Atrial Rate : 096 BPM P-R Int : 146 ms QRS Dur : 090 ms QT Int : 330 ms P-R-T Axes : 031 037 034 degrees QTc Int : 416 ms SINUS RHYTHM WITH PREMATURE ATRIAL COMPLEXES OTHERWISE NORMAL ECG WHEN COMPARED WITH ECG OF 05-MAY-2019 04:29, PREMATURE ATRIAL COMPLEXES ARE NOW PRESENT Confirmed by ANA GAYTAN MD ([id number]) on 06/20/2019 5:07:08 PM Referred By: Confirmed By:ANA GAYTAN MD
[2019-06-21] MEDS: KETOROLAC TROMETHAMINE 15 MG/ML VIAL IVPUSH PRN ×3 (03:15→19:40)
[2019-06-21] MEDS: HEPARIN NA (PORCINE) 5,000 UNITS/ML 1ML VIAL SQ SCH ×4 (06:43→21:40)
[2019-06-21 08:17] LABS: BASO % 0.1 % (0-2.0); EOS % 0.1 % (0-4.5); HEMATOCRIT 34.2 % (35.4-49); HEMOGLOBIN 11.3 GM/dL (11.7-16.9); LYMPH % 14.9 % (8-40); MCH 23.4 pg (25.7-33.7); MEAN CELL VOLUME 71.1 fl (80-96); MEAN PLT VOLUME 8.7 fl (7.5-11.1); MONO % 4.1 % (3.8-10.2); NEUT % 80.8 % (42.8-82.8); PLATELET COUNT 98 K/MM3 (134-434); RBC 4.82 M/mm3 (4.00-5.60); RDW 19.3 % (11.9-15.9); WHITE BLOOD COUNT 6.3 K/mm3 (4.0-10.0)
[2019-06-21 08:38] LABS: ALBUMIN 3.2 g/dl (3.4-5.0); BILIRUBIN,TOTAL 0.8 mg/dL (0.2-1); BLOOD UREA NITROGEN 13.1 mg/dL (7-18); CALCIUM 8.7 mg/dL (8.5-10.1); CREATININE 0.7 mg/dL (0.55-1.3); MAGNESIUM 2.2 mg/dL (1.8-2.4); POTASSIUM 3.7 mmol/L (3.5-5.1); TOT PROT 7.1 g/dl (6.4-8.2)
[2019-06-21 08:39] LABS: ALBUMIN 3.3 g/dl (3.4-5.0); BILIRUBIN,DIRECT 0.2 mg/dL (0.0-0.2); BILIRUBIN,TOTAL 0.7 mg/dL (0.2-1)
[2019-06-21] MEDS ORDERED: NAPH,MB-DB/K PH,MBDB POWDER PACKET PO ONE (08:39)
[2019-06-21] MEDS ORDERED: DEXTROSE 5%-WATER - 50 ML IVPB ONE (10:29)
[2019-06-21] MEDS ORDERED: cefTRIAXone SODIUM 1 GM VIAL ONE (10:29)
[2019-06-21] MEDS: CEFTRIAXONE 1 GM in DEXTROSE 5%-WATER - 50 ML IVPB SCH (10:31)
[2019-06-21] MEDS: FAMOTIDINE 20 MG/50 ML IVPB 20 MG/50 ML MG IVPB SCH ×2 (10:32→21:38)
[2019-06-21] MEDS: SODIUM CHLORIDE 1,000 ML IV SCH ×2 (10:33→15:18)
[2019-06-21] MEDS: ALPRAZolam 1 MG TABLET PO PRN ×2 (10:33→22:50)
--- NOTE | 2019-06-21 14:44 | PN ---
Teaching Attending Note Name of Resident: Altagracia Palacios ATTENDING PHYSICIAN STATEMENT I saw and evaluated the patient. I reviewed the resident's note and discussed the case with the resident. I agree with the resident's findings and plan as documented. SUBJECTIVE: no pain,no fever or chills. No SOB , no LAGUERRE. he wants his xanax . denies dysuria or hematuria or abd pain OBJECTIVE: NAD, comfortable in bed CV : RRR, no MRG Lungs: CATB ABd: soft, NT, ND, NL BS Ext : No edema. L dorsal hand track martinez and bruises. L elbow scales Assessment/Plan: 63 y/o man with h/o Hep C, cirrhosis, ASthma, depression, heroin abuse ( IV and snorting), who presented with abd pain, N/V. 1- Sepsis: no clear source yet. - HIDA pending - if HIDA neg will treat with keflex x 7 more days given he possibly passed stones - blood cx neg x 48hr 2- H/o heroin abuse : - no signs of withdrawal 3- XAnax dependence: - today he says he picks up his meds from [facility] not [facility] . - will call and verify - will try to reach the prescribing doctor ( Dr. Quintana ) 4-Microcytic anemia: iron studies reviewed. w/u as out pt 5- H/ O asthma 6- H/o Psoriasis 7- H/o HEp c , cirrhosis. dispo : depends on HIDA results. if Neg ,can dc home
[2019-06-21] MEDS ORDERED: QUINAPRIL HCL 40 MG TABLET (FP) PO ONE (14:46)
[2019-06-21] MEDS ORDERED: ALPRAZolam 1 MG TABLET PO ONE (14:48)
--- NOTE | 2019-06-21 16:54 | PN ---
Progress Note, Physician History of Present Illness: Pt had question of cholecystitis vs abdominal pain related to substance withdrawal/abuse. Reportedly passed ureteral stones 2 nights ago. Bili and LFTs normal, alk phos almost normal today. HIDA done today showing clearance of tracer from biliary system into intestines, but no gallbladder filling. He is seen and examined resting comfortably in bed. He reports no pain, abdominal or otherwise. No fevers, no nausea. - Current Medication List Current Medications: Active Medications Albuterol Sulfate (Ventolin Hfa Inhaler -) 2 puff IH Q4H PRN PRN Reason: ASTHMA Alprazolam (Xanax) 2 mg PO Q12H PRN PRN Reason: ANXIETY Heparin Sodium (Porcine) (Heparin -) 5,000 unit SQ TID [facility] Last Admin: 06/21/19 14:44 Dose: 5,000 unit Ceftriaxone Sodium 1 gm/ (Dextrose) 50 mls @ 100 mls/hr IVPB DAILY [facility]; Protocol Last Admin: 06/21/19 10:31 Dose: 100 mls/hr Metronidazole (Flagyl 500mg Premixed Ivpb -) 500 mg in 100 mls @ 100 mls/hr IVPB Q8H-IV [facility] Last Admin: 06/21/19 10:32 Dose: 100 mls/hr Famotidine/Sodium Chloride (Pepcid 20 Mg Premixed Ivpb -) 20 mg in 50 mls @ 100 mls/hr IVPB BID [facility] Last Admin: 06/21/19 10:32 Dose: 100 mls/hr Sodium Chloride (Normal Saline -) 1,000 mls @ 75 mls/hr IV ASDIR [facility] Last Admin: 06/21/19 15:18 Dose: Not Given Ketorolac Tromethamine (Toradol Injection -) 15 mg IVPUSH Q6H PRN PRN Reason: PAIN LEVEL 6-10 Stop: 06/24/19 14:46 Last Admin: 06/21/19 10:32 Dose: 15 mg Non-Formulary Medication (Buprenorphine Hcl/Naloxone Hcl [Suboxone 8 Mg-2 Mg Sl Tablets]) 1 tab SL TID [facility] Ondansetron HCl (Zofran Injection) 4 mg IVPUSH Q6H PRN PRN Reason: NAUSEA Last Admin: 06/19/19 23:20 Dose: 4 mg Quinapril HCl (Accupril -) 40 mg PO BID [facility] - Objective Vital Signs: Vital Signs Temperature 98.0 F 06/21/19 14:10 Pulse Rate 60 06/21/19 11:00 Respiratory Rate 64 H 06/21/19 14:30 Blood Pressure 170/90 06/21/19 14:30 O2 Sat by Pulse Oximetry (%) 98 06/21/19 10:00 Constitutional: Yes: Well Nourished, No Distress, Calm Eyes: Yes: Conjunctiva Clear, EOM Intact. No: Sclera Icterus HENT: Yes: Atraumatic, Normocephalic Gastrointestinal: Yes: Soft. No: Distention, Tenderness, Tenderness, Epigastrium Extremities: No: Cool, Cyanosis Integumentary: Yes: Tattoos. No: Jaundice, Rash Neurological: Yes: Alert, Oriented Labs: CBC, BMP 06/21/19 07:10 06/21/19 07:10 CMP Sodium 140 mmol/L (136-145) 06/21/19 07:10 Potassium 3.7 mmol/L (3.5-5.1) 06/21/19 07:10 Chloride 113 mmol/L (98-107) H 06/21/19 07:10 Carbon Dioxide 22 mmol/L (21-32) 06/21/19 07:10 Anion Gap 5 MMOL/L (8-16) L 06/21/19 07:10 BUN 13.1 mg/dL (7-18) 06/21/19 07:10 Creatinine 0.7 mg/dL (0.55-1.3) 06/21/19 07:10 Est GFR (CKD-EPI)AfAm 118.05 06/21/19 07:10 Est GFR (CKD-EPI)NonAf 101.85 06/21/19 07:10 Random Glucose 87 mg/dL (74-106) 06/21/19 07:10 Lactic Acid 1.8 mmol/L (0.4-2.0) 06/19/19 19:39 Calcium 8.7 mg/dL (8.5-10.1) 06/21/19 07:10 Phosphorus 2.0 mg/dL (2.5-4.9) L 06/21/19 07:10 Magnesium 2.2 mg/dL (1.8-2.4) 06/21/19 07:10 Iron 45 ug/dL (50-175) L 06/21/19 07:10 TIBC 450 ug/dL (250-450) 06/21/19 07:10 Iron Saturation 10 % (17.5-39) L 06/21/19 07:10 Unsaturated IBC 405 ug/dL (200-275) H 06/21/19 07:10 Ferritin 69.6 ng/ml (8-388) 06/21/19 07:10 Total Bilirubin 0.7 mg/dL (0.2-1) 06/21/19 07:10 Direct Bilirubin 0.2 mg/dL (0.0-0.2) 06/21/19 07:10 AST 14 U/L (15-37) L 06/21/19 07:10 ALT 15 U/L (13-61) 06/21/19 07:10 Alkaline Phosphatase 124 U/L (45-117) H 06/21/19 07:10 Troponin I < 0.02 ng/ml (0.00-0.05) 06/19/19 10:15 Total Protein 7.0 g/dl (6.4-8.2) 06/21/19 07:10 Albumin 3.3 g/dl (3.4-5.0) L 06/21/19 07:10 Lipase 258 U/L (73-393) 06/19/19 10:15 wbc normal LFTs normalized - ....Imaging Other: Report Reviewed, Image Reviewed (HIDA - gallbladder not filled, but tracer empties from biliary system into intestines) Problem List - Problems (1) Cholelithiasis and cholecystitis without obstruction Assessment/Plan: admitted to medicine on IV antibiotics contracted gallbladder with cholelithiasis on US - possible chronic cholecystitis CT does not appear suggestive of cholecystitis - also with contracted gallbladder HIDA could be related to chronic cholecystitis pt with h/o Hep C and cirrhosis NO epigastric or RUQ pain or tenderness reportedly passed ureteral stones 2d ago with subjective relief afterward tolerated clear liquids LFTs normalized, wbc normal very low suspicion for biliary pathology as primary source of symptoms given complete resolution of abdominal symptoms and lab abnormalities, would advance diet to regular and d/c if tolerating no acute surgical issues at this time if biliary symptoms become acute in future, recommend pt be evaluated for cholecystectomy by tertiary center given liver cirrhosis will sign off Problems reviewed: Yes Code(s): K80.10 - CALCULUS OF GALLBLADDER W CHRONIC CHOLECYST W/O OBSTRUCTION Qualifiers: Cholelithiasis location: gallbladder Cholecystitis acuity: unspecified acuity Qualified Code(s): K80.10 - Calculus of gallbladder with chronic cholecystitis without obstruction (2) Epigastric abdominal pain Assessment/Plan: resolved Code(s): R10.13 - EPIGASTRIC PAIN (3) Nausea & vomiting Assessment/Plan: resolved Code(s): R11.2 - NAUSEA WITH VOMITING, UNSPECIFIED (4) 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
--- NOTE | 2019-06-21 17:48 | PN ---
Physical Exam: SUBJECTIVE: Patient seen and examined. He reports abdominal pain. He denies chest pain, nausea, or vomiting. He reports experiencing withdrawal from Xanax. Pt reports passing 2 urinary stones overnight with some blood. OBJECTIVE: Vital Signs Period Temp Pulse Resp BP Sys/Guerrero Pulse Ox Last 24 Hr 97.4 F-98.8 F 58-60 18-64 131-170/66-90 96-98 GENERAL: The patient is awake, alert, and fully oriented, in no acute distress. HEAD: Normal with no signs of trauma. EYES: PERRL, extraocular movements intact, conjunctiva clear. ENT: Ears normal, nares patent, moist mucous membranes. NECK: Trachea midline, full range of motion, supple. LUNGS: Breath sounds equal, clear to auscultation bilaterally HEART: Regular rate and rhythm, no murmur ABDOMEN: Soft, nontender, nondistended, normoactive bowel sounds EXTREMITIES: Warm, well-perfused, no edema. NEUROLOGICAL: Cranial nerves II through XII grossly intact. Normal speech, gait not observed. PSYCH: Normal mood, normal affect. SKIN: Warm, dry, normal turgor Laboratory Results - last 24 hr 06/21/19 06/21/19 06/21/19 07:10 07:10 07:10 WBC 6.3 RBC 4.82 Hgb 11.3 L Hct 34.2 L MCV 71.1 L MCH 23.4 L MCHC 33.0 RDW 19.3 H Plt Count 98 L MPV 8.7 Absolute Neuts (auto) 5.1 Neutrophils % 80.8 Lymphocytes % 14.9 D Monocytes % 4.1 Eosinophils % 0.1 Basophils % 0.1 Nucleated RBC % 0 Sodium 140 Potassium 3.7 Chloride 113 H Carbon Dioxide 22 Anion Gap 5 L BUN 13.1 Creatinine 0.7 Est GFR (CKD-EPI)AfAm 118.05 Est GFR (CKD-EPI)NonAf 101.85 Random Glucose 87 Calcium 8.7 Phosphorus 2.0 L Magnesium 2.2 Iron 45 L TIBC 450 Iron Saturation 10 L Unsaturated IBC 405 H Ferritin 69.6 Total Bilirubin 0.8 0.7 Direct Bilirubin 0.2 AST 14 L 14 L ALT 15 15 Alkaline Phosphatase 124 H 124 H Total Protein 7.1 7.0 Albumin 3.2 L 3.3 L Active Medications Generic Name Dose Route Start Last Admin Trade Name Freq PRN Reason Stop Dose Admin Albuterol Sulfate 2 puff 06/19/19 22:40 Ventolin Hfa Inhaler - IH Q4H PRN ASTHMA Alprazolam 2 mg 06/22/19 10:00 Xanax PO Q12H PRN ANXIETY Heparin Sodium (Porcine) 5,000 unit 06/20/19 14:00 06/21/19 14:44 Heparin - SQ 5,000 unit TID [facility] Administration Ceftriaxone Sodium 1 gm/ 50 mls @ 100 mls/hr 06/20/19 10:00 06/21/19 10:31 Dextrose IVPB 100 mls/hr DAILY [facility] Administration Protocol Metronidazole 500 mg in 100 mls @ 100 mls/hr 06/19/19 18:00 06/21/19 10:32 Flagyl 500mg Premixed Ivpb - IVPB 100 mls/hr Q8H-IV [facility] Administration Famotidine/Sodium Chloride 20 mg in 50 mls @ 100 mls/hr 06/19/19 22:45 10:32 Pepcid 20 Mg Premixed Ivpb - IVPB 100 mls/hr BID [facility] Administration Sodium Chloride 1,000 mls @ 75 mls/hr 06/20/19 15:18 06/21/19 15:18 Normal Saline - IV Not Given ASDIR [facility] Ketorolac Tromethamine 15 mg 06/19/19 14:47 06/21/19 10:32 Toradol Injection - IVPUSH 06/24/19 14:46 15 mg Q6H PRN Administration PAIN LEVEL 6-10 Non-Formulary Medication 1 tab 06/19/19 22:00 Buprenorphine Hcl/Naloxone Hcl [Suboxone 8 Mg-2 Mg Sl Tablets] SL TID [facility] Ondansetron HCl 4 mg 06/19/19 22:38 06/19/19 23:20 Zofran Injection IVPUSH 4 mg Q6H PRN Administration NAUSEA Quinapril HCl 40 mg 06/21/19 22:00 Accupril - PO BID [facility] ASSESSMENT/PLAN: Mr. Goldman is a 63y/o male with hepatitis C, liver cirrhosis, HTN, asthma, depression, heroin use disorder (IV and inhalation) who presents with abdominal pain, nausea, and vomiting. Pt was found to be febrile and have leukocytosis and lactic acidosis. #sepsis, unknown source Pt reports passing 2 urinary stones overnight with some blood. Abdominal pain still present. Leukocytosis resolved. -HIDA scan- acute vs chronic cholecystitis with no filling of gallbladder with contrast. -rocephin 1g day 2 -flagyl 500mg Q8H day 2 -toradol PRN pain -consider Keflex at discharge for 7 days -Discussed the need for transfer to [facility] for more comprehensive GI/ surgical workup but pt refused. #hypophosphatemia 2.0 -repleted -monitor labs #HTN -quinapril 40mg BID #heroin use disorder Last refill of suboxone over 1 month ago. -monitor for signs of withdrawal #anxiety Home dose of Xanax confirmed with pharmacy and physician. -Xanax 2mg BID PRN DVT Ppx heparin GI Ppx pepcid FEN NS 75mL/hr monitor Phos clear liquids Visit type - Emergency Visit Emergency Visit: Yes ED Registration Date: 06/19/19 Care time: The patient presented to the Emergency Department on the above date and was hospitalized for further evaluation of their emergent condition. - New Patient This patient is new to me today: Yes Date on this admission: 06/21/19 - Critical Care Critical Care patient: No - Discharge Referral Referred to [facility] Med P.C.: No ATTENDING PHYSICIAN STATEMENT I saw and evaluated the patient. I reviewed the resident's note and discussed the case with the resident. I agree with the resident's findings and plan as documented. SUBJECTIVE: OBJECTIVE: ASSESSMENT AND PLAN:
[2019-06-21] MEDS: QUINAPRIL HCL 40 MG TABLET (FP) PO SCH (21:38)
[2019-06-22] MEDS: KETOROLAC TROMETHAMINE 15 MG/ML VIAL IVPUSH PRN ×3 (01:46→17:58)
[2019-06-22] MEDS: HEPARIN NA (PORCINE) 5,000 UNITS/ML 1ML VIAL SQ SCH ×3 (06:07→21:24)
[2019-06-22] MEDS: SODIUM CHLORIDE 1,000 ML IV SCH ×2 (06:09→18:02)
[2019-06-22] MEDS ORDERED: DEXTROSE 5%-WATER - 50 ML IVPB ONE (08:39)
[2019-06-22] MEDS ORDERED: cefTRIAXone SODIUM 1 GM VIAL ONE (08:39)
[2019-06-22] MEDS: FAMOTIDINE 20 MG/50 ML IVPB 20 MG/50 ML MG IVPB SCH ×2 (09:10→21:24)
[2019-06-22] MEDS: ALPRAZolam 1 MG TABLET PO PRN ×2 (09:10→21:25)
[2019-06-22] MEDS: CEFTRIAXONE 1 GM in DEXTROSE 5%-WATER - 50 ML IVPB SCH (09:10)
[2019-06-22] MEDS: QUINAPRIL HCL 40 MG TABLET (FP) PO SCH ×2 (09:11→21:25)
[2019-06-22] MEDS ORDERED: ALPRAZolam 1 MG TABLET PO PRN (10:00)
[2019-06-22] MEDS: ONDANSETRON 4 MG/2 ML VIAL IVPUSH PRN (13:02)
--- NOTE | 2019-06-22 14:08 | PN ---
Physical Exam: SUBJECTIVE: Patient seen and examined. He denies abdominal pain, n/v/d. He reports being hungry and is wanting to eat. OBJECTIVE: Vital Signs Period Temp Pulse Resp BP Sys/Guerrero Pulse Ox Last 24 Hr 97.8 F-98.9 F 55-56 18-64 149-170/87-95 96-97 GENERAL: The patient is awake, alert, and fully oriented, in no acute distress. HEAD: Normal with no signs of trauma. EYES: PERRL, extraocular movements intact, conjunctiva clear. ENT: Ears normal, nares patent, moist mucous membranes. NECK: Trachea midline, full range of motion, supple. LUNGS: Clear to auscultation bilaterally. HEART: Regular rate and rhythm, no murmur. ABDOMEN: Soft, nontender, nondistended, normoactive bowel sounds, no guarding EXTREMITIES: Warm, well-perfused, no edema. NEUROLOGICAL: Cranial nerves II through XII grossly intact. Normal speech, gait not observed. PSYCH: Agitated. Discussing wanting to leave because his diet is not advanced. SKIN: Warm, dry, normal turgor. Laboratory Results - last 24 hr 06/22/19 11:14 POC Glucometer 179 Active Medications Generic Name Dose Route Start Last Admin Trade Name Freq PRN Reason Stop Dose Admin Albuterol Sulfate 2 puff 06/19/19 22:40 Ventolin Hfa Inhaler - IH Q4H PRN ASTHMA Alprazolam 2 mg 06/21/19 22:45 06/22/19 09:10 Xanax PO 2 mg Q12H PRN Administration ANXIETY Heparin Sodium (Porcine) 5,000 unit 06/20/19 14:00 06/22/19 06:07 Heparin - SQ Not Given TID [facility] Ceftriaxone Sodium 1 gm/ 50 mls @ 100 mls/hr 06/20/19 10:00 06/22/19 09:10 Dextrose IVPB 100 mls/hr DAILY [facility] Administration Protocol Metronidazole 500 mg in 100 mls @ 100 mls/hr 06/19/19 18:00 06/22/19 09:10 Flagyl 500mg Premixed Ivpb - IVPB 100 mls/hr Q8H-IV [facility] Administration Famotidine/Sodium Chloride 20 mg in 50 mls @ 100 mls/hr 06/19/19 22:45 09:10 Pepcid 20 Mg Premixed Ivpb - IVPB 100 mls/hr BID [facility] Administration Sodium Chloride 1,000 mls @ 75 mls/hr 06/20/19 15:18 06/22/19 06:09 Normal Saline - IV 75 mls/hr ASDIR [facility] Administration Ketorolac Tromethamine 15 mg 06/19/19 14:47 06/22/19 09:10 Toradol Injection - IVPUSH 06/24/19 14:46 15 mg Q6H PRN Administration PAIN LEVEL 6-10 Non-Formulary Medication 1 tab 06/19/19 22:00 Buprenorphine Hcl/Naloxone Hcl [Suboxone 8 Mg-2 Mg Sl Tablets] SL TID [facility] Ondansetron HCl 4 mg 06/19/19 22:38 06/22/19 13:02 Zofran Injection IVPUSH 4 mg Q6H PRN Administration NAUSEA Quinapril HCl 40 mg 06/21/19 22:00 06/22/19 09:11 Accupril - PO 40 mg BID [facility] Administration ASSESSMENT/PLAN: Mr. Goldman is a 63y/o male with hepatitis C, liver cirrhosis, HTN, asthma, depression, heroin use disorder (IV and inhalation) who presents with abdominal pain, nausea, and vomiting. Pt was found to be septic. #sepsis, unknown source #abdominal pain, improved Pt reports passing 2 urinary stones during admission with some blood. Leukocytosis resolved. HIDA scan- acute vs chronic cholecystitis with no filling of gallbladder with contrast. -rocephin 1g day 3 -flagyl 500mg Q8H day 3 -toradol PRN pain -consider Keflex at discharge for 7 days -Discussed the need for transfer to [facility] for more comprehensive GI/ surgical workup but pt refused. -MRCP #HTN -quinapril 40mg BID #anxiety Home dose of Xanax confirmed with pharmacy and physician. -Xanax 2mg BID PRN #hypophosphatemia Pt refused labs today. #heroin use disorder Last refill of suboxone over 1 month ago. DVT Ppx heparin GI Ppx pepcid FEN NS 75mL/hr repeat labs ordered for tomorrow clear liquids Visit type - Emergency Visit Emergency Visit: Yes ED Registration Date: 06/19/19 Care time: The patient presented to the Emergency Department on the above date and was hospitalized for further evaluation of their emergent condition. - New Patient This patient is new to me today: No - Critical Care Critical Care patient: No - Discharge Referral Referred to [facility] Med P.C.: No ATTENDING PHYSICIAN STATEMENT I saw and evaluated the patient. I reviewed the resident's note and discussed the case with the resident. I agree with the resident's findings and plan as documented. SUBJECTIVE: OBJECTIVE: ASSESSMENT AND PLAN:
--- NOTE | 2019-06-22 18:24 | CONS ---
GASTROINTESTINAL CONSULTATION DATE OF CONSULTATION: DATE OF DICTATION: 06/22/2019 HISTORY: Patient is a 63-year-old male with a past medical history of hepatitis C, Xanax dependence, cirrhosis, hepatitis C, which apparently was diagnosed in 2013. He states he was treated with questionably Harvoni. He also has a history of varices in the past, which were banded last in 2018 at [place] also with a history of depression who presents to the emergency room with generalized body aches, abdominal pain located in the epigastric area and periumbilical region and fever as well as nausea and vomiting that started approximately a day or 2 prior to admission. The patient denies any melena, hematochezia, or hematemesis. In the emergency room, he did have a fever of 103. PAST MEDICAL HISTORY: As per the HPI. PAST SURGICAL HISTORY: As per the HPI. SOCIAL HISTORY: Used heroin in the past. Does not smoke or drink. ALLERGIES: MORPHINE and FISH-CONTAINING PRODUCTS. HOME MEDICATIONS: Include Ventolin, Xanax, and Suboxone. REVIEW OF SYSTEMS: Limited. He denies history of GI bleed in the past. He also denies being hospitalized for confusion states. He has never had a colonoscopy in the past, but again, has had his upper endoscopy in 2018 at [place] with questionable banding. PHYSICAL EXAMINATION: Vital Signs: Temperature 98, pulse 55, blood pressure 150/95, pulse oximetry 96% on room air, respiratory rate 12. General: In no acute distress. HEENT: Anicteric sclerae. Cardiovascular: S1, S2. Regular rate and rhythm. Lungs: Bilaterally clear to auscultation. Abdomen: Tender in the periumbilical area and epigastrium to deep palpation without rebound or guarding. Extremities: Without edema. LABORATORIES: White blood cell count on admission was 11, currently it is 6.3, hemoglobin 11, hematocrit 34, MCV 71, platelet count 98, INR 1.23. Sodium 140, potassium 3.7, BUN 13, creatinine 0.7. Total bilirubin 0.7, AST 14, ALT 15, alkaline phosphatase 124. Lipase is 258. Urine 1+ blood. Toxicology screen was positive for opiates and benzodiazepine. Influenza serologies were negative. Urine culture, strep viridans. Blood cultures are negative x2. He had abdomen and pelvic CT scan, which revealed no acute pathology. There was evidence of hepatic cirrhosis, splenomegaly, and a small right inguinal hernia with fat. Gallbladder appears slightly contracted. Questionable chronic cholecystitis versus physiologic. No calculus was visualized, and no bile ductal dilatation. He had a gallbladder scan, which did not reveal filling of the gallbladder after 2 hours. IMPRESSION: Abdominal pain highly suspicious for biliary etiology. Considering his liver tests are within normal limits and there is no biliary ductal dilatation on his CT scan, I doubt he had choledocholithiasis. Also with a history of hepatitis C, cirrhosis, does not appear to be decompensated at this time. RECOMMENDATION: Continue with antibiotics and treatment for acute cholecystitis and p.o. IV fluids and would recommend surgery follow up for further management of this patient. Repeat hepatitis serologies can be done as an outpatient as well as surveillance endoscopy. At this time, there is no sign of any GI bleed or decompensation. Avoid NSAIDs. Avoid sedatives. Start him on Protonix 40 mg p.o. daily. We will follow. DO LAMBERTO RUBALCAVA/[id number]
--- NOTE | 2019-06-22 19:58 | PN ---
Teaching Attending Note Name of Resident: Altagracia Palacios ATTENDING PHYSICIAN STATEMENT I saw and evaluated the patient. I reviewed the resident's note and discussed the case with the resident. I agree with the resident's findings and plan as documented. SUBJECTIVE: No fever or chills. he does not have abd pain . hungry .asks for prescription for xanax OBJECTIVE: NAD, comfortable in bed CV : RRR, no MRG Lungs: CATB ABd: soft, NT, ND, NL BS Ext : No edema. L dorsal hand track martinez and bruises. Assessment/Plan: 63 y/o man with h/o Hep C, cirrhosis, ASthma, depression, heroin abuse ( IV and snorting), who presented with abd pain, N/V. 1- Sepsis: no clear source yet. - HIDA with no filing of the bladder - case was d/w Tequila Santos who did not recommend sx - CAse d/w Dr. Steiner who will see patient - cont Abx 2- H/o heroin abuse : last use 5-10 days prior to admission - no signs of withdrawal 3- XAnax dependence: - dose of 2 mg BID was confirmed - patient claims he lost his xanax in ambulance and asks for prescription at dc - he was advsied to follow with his prescriber, and that no Benzos will be prescribed at dc ( not even 1-2 days worth) 4-Microcytic anemia: iron studies reviewed. w/u as out pt 5- H/ O asthma 6- H/o Psoriasis 7- H/o HEp c , cirrhosis.
[2019-06-22] MEDS ORDERED: PT OWN MED DRAWER 7, Y5N ONE (21:10)
[2019-06-23] MEDS: KETOROLAC TROMETHAMINE 15 MG/ML VIAL IVPUSH PRN ×2 (00:15→06:39)
[2019-06-23] MEDS: HEPARIN NA (PORCINE) 5,000 UNITS/ML 1ML VIAL SQ SCH ×2 (05:54→13:54)
[2019-06-23] MEDS: ONDANSETRON 4 MG/2 ML VIAL IVPUSH PRN (06:54)
[2019-06-23] MEDS: SODIUM CHLORIDE 1,000 ML IV SCH (07:53)
[2019-06-23] MEDS ORDERED: DEXTROSE 5%-WATER - 50 ML IVPB ONE (09:06)
[2019-06-23] MEDS ORDERED: PT OWN MED DRAWER 7, Y5N ONE ×2 (09:06→09:20)
[2019-06-23] MEDS ORDERED: cefTRIAXone SODIUM 1 GM VIAL ONE (09:06)
[2019-06-23] MEDS: FAMOTIDINE 20 MG/50 ML IVPB 20 MG/50 ML MG IVPB SCH (09:13)
[2019-06-23] MEDS: ALPRAZolam 1 MG TABLET PO PRN (09:14)
[2019-06-23] MEDS: QUINAPRIL HCL 40 MG TABLET (FP) PO SCH (09:21)
--- NOTE | 2019-06-23 09:57 | PN ---
Teaching Attending Note Name of Resident: Shaina Cobb ATTENDING PHYSICIAN STATEMENT I saw and evaluated the patient. I reviewed the resident's note and discussed the case with the resident. I agree with the resident's findings and plan as documented. SUBJECTIVE: Patient is comfortable with no acute distress, no nausea or vomiting, no abdominal pain. Vital Signs Temperature 98.0 F 06/23/19 16:35 Pulse Rate 56 L 06/23/19 16:35 Respiratory Rate 18 06/23/19 16:35 Blood Pressure 149/77 06/23/19 16:35 O2 Sat by Pulse Oximetry (%) 96 06/23/19 09:27 GENERAL: The patient is awake, alert, and fully oriented, in no acute distress. HEAD: Normal with no signs of trauma. EYES: PERRL, extraocular movements intact, sclera anicteric, conjunctiva clear. ENT: Ears normal, oropharynx clear without exudates, moist mucous membranes. NECK: Trachea midline, full range of motion, supple. LUNGS: Breath sounds equal, clear to auscultation bilaterally, no wheezes, no crackles, no accessory muscle use. HEART: Regular rate and rhythm, S1, S2 without murmur, rub or gallop. ABDOMEN: Soft, NT,ND, normoactive bowel sounds, no guarding, no rebound, no hepatosplenomegaly, no masses. EXTREMITIES: 2+ pulses, warm, well-perfused, no edema. L dorsal hand track martinez and bruises. NEUROLOGICAL: Cranial nerves II through XII grossly intact. Normal speech, gait not observed. PSYCH: Normal mood, normal affect. SKIN: Warm, dry, normal turgor, no rashes or lesions noted WBC 6.3 K/mm3 (4.0-10.0) 06/21/19 07:10 RBC 4.82 M/mm3 (4.00-5.60) 06/21/19 07:10 Hgb 11.3 GM/dL (11.7-16.9) L 06/21/19 07:10 Hct 34.2 % (35.4-49) L 06/21/19 07:10 MCV 71.1 fl (80-96) L 06/21/19 07:10 MCHC 33.0 g/dl (32.0-35.9) 06/21/19 07:10 RDW 19.3 % (11.9-15.9) H 06/21/19 07:10 Plt Count 98 K/MM3 (134-434) L 06/21/19 07:10 MPV 8.7 fl (7.5-11.1) 06/21/19 07:10 CMP Sodium 140 mmol/L (136-145) 06/21/19 07:10 Potassium 3.7 mmol/L (3.5-5.1) 06/21/19 07:10 Chloride 113 mmol/L (98-107) H 06/21/19 07:10 Carbon Dioxide 22 mmol/L (21-32) 06/21/19 07:10 Anion Gap 5 MMOL/L (8-16) L 06/21/19 07:10 BUN 13.1 mg/dL (7-18) 06/21/19 07:10 Creatinine 0.7 mg/dL (0.55-1.3) 06/21/19 07:10 Random Glucose 87 mg/dL (74-106) 06/21/19 07:10 Calcium 8.7 mg/dL (8.5-10.1) 06/21/19 07:10 Total Bilirubin 0.7 mg/dL (0.2-1) 06/21/19 07:10 AST 14 U/L (15-37) L 06/21/19 07:10 ALT 15 U/L (13-61) 06/21/19 07:10 Alkaline Phosphatase 124 U/L (45-117) H 06/21/19 07:10 Total Protein 7.0 g/dl (6.4-8.2) 06/21/19 07:10 Albumin 3.3 g/dl (3.4-5.0) L 06/21/19 07:10 CARDIAC ENZYMES Troponin I < 0.02 ng/ml (0.00-0.05) 06/19/19 10:15 Current Medications Generic Name Dose Route Start Last Admin Trade Name Freq PRN Reason Stop Dose Admin Albuterol Sulfate 2 puff 06/19/19 22:40 Ventolin Hfa Inhaler - IH Q4H PRN ASTHMA Alprazolam 2 mg 06/21/19 22:45 06/23/19 09:14 Xanax PO 2 mg Q12H PRN Administration ANXIETY Heparin Sodium (Porcine) 5,000 unit 06/20/19 14:00 06/23/19 05:54 Heparin - SQ Not Given TID GERALD Ceftriaxone Sodium 1 gm/ 50 mls @ 100 mls/hr 06/20/19 10:00 06/22/19 09:10 Dextrose IVPB 100 mls/hr DAILY GERALD Administration Protocol Famotidine/Sodium Chloride 20 mg in 50 mls @ 100 mls/hr 06/19/19 22:45 09:13 Pepcid 20 Mg Premixed Ivpb - IVPB 100 mls/hr BID GERALD Administration Sodium Chloride 1,000 mls @ 75 mls/hr 06/20/19 15:18 06/23/19 07:53 Normal Saline - IV Not Given ASDIR GERALD Ceftriaxone Sodium 1 gm/ 50 mls @ 100 mls/hr 06/23/19 10:00 Dextrose IVPB DAILY GERALD Metronidazole 500 mg in 100 mls @ 100 mls/hr 06/23/19 03:15 06/23/19 04:53 Flagyl 500mg Premixed Ivpb - IVPB 100 mls/hr Q8H-IV GERALD Administration Ketorolac Tromethamine 15 mg 06/19/19 14:47 06/23/19 06:39 Toradol Injection - IVPUSH 06/24/19 14:46 15 mg Q6H PRN Administration PAIN LEVEL 6-10 Non-Formulary Medication 1 tab 06/19/19 22:00 Buprenorphine Hcl/Naloxone Hcl [Suboxone 8 Mg-2 Mg Sl Tablets] SL TID GERALD Ondansetron HCl 4 mg 06/19/19 22:38 06/23/19 06:54 Zofran Injection IVPUSH 4 mg Q6H PRN Administration NAUSEA Quinapril HCl 40 mg 06/21/19 22:00 06/23/19 09:21 Accupril - PO 40 mg BID GERALD Administration Home Medications Medication Instructions Recorded Albuterol Sulfate Inhaler - 2 inh PO Q4H PRN MDD 8 02/06/18 [Ventolin HFA Inhaler -] Clobetasol Propionate/Emoll 1 applic TP DAILY 06/20/19 [Clobetasol Emollient 0.05% Crm] Alprazolam [Xanax] 2 mg PO BID 06/21/19 Docusate Sodium [Colace] 100 mg PO DAILY 11/18/19 Mirtazapine [Remeron -] 15 mg PO DAILY 06/21/19 Quinapril HCl [Accupril] 40 mg PO BID 06/21/19 Microbiology 06/19/19 10:15 Blood - Peripheral Venous Blood Culture - Preliminary NO GROWTH OBTAINED AFTER 96 HOURS, INCUBATION TO CONTINUE FOR 1 DAYS. 06/19/19 10:15 Blood - Peripheral Venous Blood Culture - Preliminary NO GROWTH OBTAINED AFTER 96 HOURS, INCUBATION TO CONTINUE FOR 1 DAYS. 06/19/19 10:15 Urine - Urine Clean Catch Urine Culture - Final Streptococcus Viridans less than 10K MRCP: Cirrhotic liver with no enhancing hepatic lesions to suggest HCC, splenomegaly, cholelithiasis with no definite MRI evidence of acute cholecystitis, No choledocholithiasis seen. Assessment/Plan: Patient is a 63yo male with Hx of Hep C, cirrhosis, Asthma, depression, heroin abuse ( IV and snorting), who presented with abdominal pain with N/V. # Hx of liver cirrhosis as reported on the MRI # Sepsis: with no clear source. cholecystitis is rulled out, s/p rocephin/ flagyl in the hospital , no identified source was noted. - HIDA with no filing of the bladder, MRI is negative , patient is stable and be discharged home and continue home meds. # H/o heroin abuse : last use 5-10 days prior to admission, no signs of withdrawal # Xanax dependence:continue home xanax 2 mg BID was confirmed, follow up with PMD #Microcytic anemia: iron studies reviewed. w/u as out pt # H/ O asthma # H/o Psoriasis # H/o Hep C.
[2019-06-23] MEDS ORDERED: CEFTRIAXONE 1 GM in DEXTROSE 5%-WATER - 50 ML IVPB SCH (10:00)
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
[2019-06-23 17:26] VITALS: BP 149/77; PULSE 56; TEMP 98
== END 2019-06-23 16:53 | disposition home or self-care (01) | DRG 872 ==
LOC: JER 09:39 → JERBED 13:51 → J5S 17:19 → J6S 06-20 08:58
PROVIDERS: ADMIT Internal Medicine; ATTEND Internal Medicine
DX: A41.89 Other specified sepsis (principal); K80.10 Calculus of gallbladder with chronic cholecystitis without obstruction; E87.2 Acidosis; I10 Essential (primary) hypertension; D72.829 Elevated white blood cell count, unspecified; F11.10 Opioid abuse, uncomplicated; F41.8 Other specified anxiety disorders; K74.69 Other cirrhosis of liver; B19.20 Unspecified viral hepatitis C without hepatic coma; J45.20 Mild intermittent asthma, uncomplicated; D64.9 Anemia, unspecified; E83.39 Other disorders of phosphorus metabolism
CPT/HCPCS: 36415; 71045-TC-FY; 74177-TC; 74182-TC; 76705-TC; 78226-TC; 80053; 80076; 80307; 81003; 82728; 82803; 82962; 83540; 83550; 83605; 83690; 83735; 84100; 84484; 85025; 85027; 85610; 85730; 87040; 87086; 87804; 93005; 93010; 99284-25; A9537; A9579; J0131; J1644; J7030; Q9967

== ENCOUNTER 2019-09-09 19:35 | Emergency (ER) | payer OTHER ==
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
[2019-09-09] MEDS ORDERED: FAMOTIDINE 20 MG/50 ML IVPB 20 MG/50 ML MG IVPB ONE ×2 (20:18→21:29)
[2019-09-09] MEDS ORDERED: MAG HYDROX/AL HYDROX/SIMETH 30 ML UNIT-DOSE CUP PO ONE (20:18)
[2019-09-09] MEDS ORDERED: hydrOXYzine PAMOATE 25 MG CAPSULE (FP) PO ONE ×2 (20:18→21:28)
[2019-09-09] MEDS ORDERED: SODIUM CHLORIDE 500 ML IV STA (20:18)
[2019-09-09] MEDS ORDERED: ASPIRIN 81 MG CHEWABLE TABLETS PO ONE ×2 (20:19→21:52)
[2019-09-09 20:29] VITALS: BMI 23.7
[2019-09-09] MEDS ORDERED: PANTOPRAZOLE 40 MG TABLET PO ONE (20:30)
--- NOTE | 2019-09-09 20:45 | PDOC ---
Documentation entered by Joey Chang SCRIBE, acting as scribe for Kayy Cabral DO. Kayy Cabral DO: This documentation has been prepared by the Bernardo gregory Angel, SCRIBE, under my direction and personally reviewed by me in its entirety. I confirm that the documentation accurately reflects all work, treatment, procedures, and medical decision making performed by me. Attending Attestation - Resident Resident Name: Smitha Moraes - ED Attending Attestation I have performed the following: I have examined & evaluated the patient, The case was reviewed & discussed with the resident, I agree w/resident's findings & plan, Exceptions are as noted - HPI HPI: 09/09/19 20:51 The patient is a 63 year old male with a significant PMH of hepatitis C, alcohol / heroine/ Xanax dependence, cirrhosis, HTN, anxiety, asthma, MDD, and depression who presents to the emergency department BIBA with chest discomfort. Pt describes the chest discomfort as a midsternal, sharp, burning sensation as well as food tasting metallic. Pt is reported to be anxious, the last use of heroin was 2-3 weeks ago and is non-compliant with meds. Pt reports he had his varicocele clipped 2-3 weeks ago at [facility] and his L hip repaired/replaced 1 month ago at [facility] in [place]. The patient denies shortness of breath, headache and dizziness. Denies fever, chills, cough, nausea, vomiting, diarrhea and constipation. Denies dysuria, frequency, urgency and hematuria. Allergies: NKDA - Physicial Exam PE: 09/09/19 20:53 GENERAL: Awake, alert, and fully oriented, in no acute distress HEAD: No signs of trauma EYES: + mild icterus. PERRLA, EOMI, ENT: Auricles normal inspection, hearing grossly normal, nares patent, oropharynx clear without exudates. Moist mucosa NECK: Normal ROM, supple, no lymphadenopathy, JVD, or masses LUNGS: Breath sounds equal, clear to auscultation bilaterally. No wheezes, and no crackles HEART: Regular rate and rhythm, normal S1 and S2, no murmurs, rubs or gallops ABDOMEN: Soft, nontender, normoactive bowel sounds. No guarding, no rebound. No masses EXTREMITIES: +bilateral forearm injection martinez, +L lateral hip well healed incision. No drainage. Normal range of motion, no edema. No clubbing or cyanosis. No cords, erythema, or tenderness NEUROLOGICAL: Cranial nerves II through XII grossly intact. +no C-spine or L- spine SKIN: Warm, Dry, normal turgor, no rashes or lesions noted. 09/09/19 21:00 - Medical Decision Making 09/09/19 20:44 EKG: sinus at 64, nl axis, nl interval, no acute st/t wave findings 09/09/19 22:56 trop neg pt states pain resolved pt states he wants to go home pt states cp and epigastric pain resolved pt will need to take PPI meds - which he has in his meds, discussed compliance with meds 09/09/19 22:58 pt stable for dc to home and follow up with PMD Heart Score/ECG Review - ECG Intrepretation Comment:: 09/09/19 20:40 a/p: 63yo male with epigastric pain and cp -no sob -pain has been constant since 11a today -pt states pain has been intermittent since an EGD with banding of his varices at [facility] -pt denies f/c, no n/v/d -injected heroin 2 weeks ago to b/l forearm, also states he ran out of his xanax early -pt states he used heroin after having his hip replaced about a month ago at [facility]- IV injections to b/l forearms -pt denies cough -no dysuria -no bleeding or blood in stool -requesting HIV testing -will medicate for pain, gi meds -will monitor and reassess -pt states he has not been taking his GI meds, states he has been taking bp meds , pt with noncompliance and drug use recently
[2019-09-09 21:19] LABS: BASO % 0.2 % (0-2.0); EOS % 0.4 % (0-4.5); HEMATOCRIT 39.7 % (35.4-49); HEMOGLOBIN 13.4 GM/dL (11.7-16.9); LYMPH % 30.8 % (8-40); MCH 25.9 pg (25.7-33.7); MCHC 33.7 g/dl (32.0-35.9); MEAN CELL VOLUME 76.7 fl (80-96); MEAN PLT VOLUME 8.9 fl (7.5-11.1); MONO % 9.1 % (3.8-10.2); NEUT % 59.5 % (42.8-82.8); PLATELET COUNT 104 K/MM3 (134-434); RBC 5.18 M/mm3 (4.00-5.60); RDW 20.2 % (11.9-15.9); WHITE BLOOD COUNT 5.3 K/mm3 (4.0-10.0)
[2019-09-09 21:26] LABS: PH,URINE 7.5 (5.0-8.0); URINE APPEARANCE CLEAR; URINE BILIRUBIN NEGATIVE (NEGATIVE); URINE COLOR YELLOW; URINE GLUCOSE (UA) NEGATIVE (NEGATIVE); URINE KETONE NEGATIVE (NEGATIVE); URINE LEUK ESTERASE NEGATIVE (NEGATIVE); URINE NITRITE NEGATIVE (NEGATIVE); URINE PROTEIN NEGATIVE (NEGATIVE)
[2019-09-09] MEDS ORDERED: PANTOPRAZOLE 40 MG TABLET ONE (21:28)
[2019-09-09] MEDS ORDERED: ASPIRIN 81 MG CHEWABLE TABLETS ONE (21:28)
[2019-09-09] MEDS ORDERED: MAG HYDROX/AL HYDROX/SIMETH 30 ML UNIT-DOSE CUP ONE (21:29)
[2019-09-09 21:34] LABS: ACTIVATED PTT 36.8 SECONDS (25.2-36.5)
[2019-09-09 21:49] LABS: ALBUMIN 4.2 g/dl (3.4-5.0); ALK PHOS 195 U/L (45-117); ANION GAP 5 MMOL/L (8-16); BLOOD UREA NITROGEN 12.9 mg/dL (7-18); CALCIUM 9.2 mg/dL (8.5-10.1); CHLORIDE 101 mmol/L (98-107); CO2 29 mmol/L (21-32); CREATININE 0.8 mg/dL (0.55-1.3); GLUCOSE,RANDOM 66 mg/dL (74-106); MAGNESIUM 2.1 mg/dL (1.8-2.4); PHOSPHOROUS 3.2 mg/dL (2.5-4.9); POTASSIUM 4.1 mmol/L (3.5-5.1); SGOT/AST 30 U/L (15-37); SGPT/ALT 31 U/L (13-61); SODIUM 135 mmol/L (136-145)
[2019-09-09 22:09] LABS: INR 1.18 (0.83-1.09); PROTHROMBIN TIME (PATIENT) 13.9 SEC (9.7-13.0)
[2019-09-09 23:30] VITALS: BP 140/90; PULSE 59; TEMP 98.5
--- NOTE | 2019-09-10 15:36 | EKG ---
Test Reason : Blood Pressure : / mmHG Vent. Rate : 064 BPM Atrial Rate : 065 BPM P-R Int : 000 ms QRS Dur : 090 ms QT Int : 416 ms P-R-T Axes : 000 046 041 degrees QTc Int : 429 ms ECTOPIC ATRIAL RHYTHM ABNORMAL ECG Confirmed by ANA GAYTAN MD ([id number]) on 09/10/2019 3:36:05 PM Referred By: Confirmed By:ANA GAYTAN MD
== END 2019-09-10 01:38 | disposition home or self-care (01) ==
LOC: JER 19:35
PROC: 3E033GC Introduction of Other Therapeutic Substance into Peripheral Vein, Percutaneous Approach (ICD-10-PCS; principal; 2019-09-09)
DX: I10 Essential (primary) hypertension (principal); J45.909 Unspecified asthma, uncomplicated; K74.60 Unspecified cirrhosis of liver; B18.2 Chronic viral hepatitis C; F33.9 Major depressive disorder, recurrent, unspecified; Z87.19 Personal history of other diseases of the digestive system; Z96.642 Presence of left artificial hip joint; F11.10 Opioid abuse, uncomplicated; Z91.013 Allergy to seafood; Z88.8 Allergy status to other drugs, medicaments and biological substances; Z88.5 Allergy status to narcotic agent
CPT/HCPCS: 36415; 71046-TC-FY; 80053; 81003; 82550; 83690; 83735; 84100; 84484; 85025; 85610; 85730; 87389; 93005; 93010; 99284-25

== ENCOUNTER 2020-01-27 20:36 | Inpatient (IN) | payer OTHER ==
[2020-01-27] MEDS ORDERED: FAMOTIDINE 20 MG/50 ML IVPB 20 MG/50 ML MG IVPB ONE ×2 (20:42→21:18)
[2020-01-27] MEDS ORDERED: SODIUM CHLORIDE 1,000 ML IV STA (20:42)
[2020-01-27] MEDS ORDERED: ONDANSETRON 4 MG/2 ML VIAL IVPUSH ONE (20:43)
--- NOTE | 2020-01-27 20:45 | PDOC ---
Rapid Medical Evaluation Chief Complaint: Pain Time Seen by Provider: 01/27/20 20:39 Medical Evaluation: Allergies Allergy/AdvReac Type Severity Reaction Status Date / Time metoclopramide [From Reglan] Allergy Swelling Verified 08/09/19 13:05 morphine Allergy "clots up Verified 08/06/19 22:43 veins" Fish Containing Products AdvReac Severe Difficulty Verified 08/06/19 22:43 Breathing 01/27/20 20:43 I performed a brief in-person evaluation of this patient. Pt is a 64 y/o male on methadone for suboxone abuse, xanax for anxiety who presents to the ED with complaint of epigastric abdominal pain since this morning. He admits to vomiting 3 times today. He denies any fevers or chills. Pertinent physical exam findings: uncomfortable appearing, nontoxic, no respiratory distress I have ordered the following: labs, saline lock, pepcid, zofran Patient to proceed to ED for further evaluation. Discharge Disposition - Diagnosis Abdominal pain - Referrals Referrals: Kathia Grande [Primary Care Provider] - - Patient Instructions - Post Discharge Activity
[2020-01-27 20:52] VITALS: BMI 26.4
--- NOTE | 2020-01-27 21:10 | PDOC ---
History of Present Illness - General Chief Complaint: Pain Stated Complaint: ABDOMINAL PAIN Time Seen by Provider: 01/27/20 20:39 - History of Present Illness Initial Comments: The pt is a 64M w/ a history of HCV, alcohol/heroine/Xanax dependence, cirrhosis, HTN, anxiety, asthma, MDD, GERD and depression who presents for evaluation of of 1 day of epigastric pain. The pain is burning, constant, non- radiating, associated with NBNB emesis x4, and is not exacerbated or alleviated by anything he can identify. He has not taken anything for his pain. He denies fevers, bloody emesis, chest pain, trouble breathing, diarrhea, blood in stool, dysuria, hematuria, back pain. Pt states this pain feels typical of his 'heartburn' 01/27/20 21:09 Past History - Medical History Allergies/Adverse Reactions: Allergies Allergy/AdvReac Type Severity Reaction Status Date / Time metoclopramide [From Reglan] Allergy Swelling Verified 01/27/20 20:51 morphine Allergy "clots up Verified 01/27/20 20:51 veins" Fish Containing Products AdvReac Severe Difficulty Verified 01/27/20 20:51 Breathing Home Medications: Ambulatory Orders Alprazolam [Xanax] 2 mg PO BID 06/21/19 Walker [Ultra-Light Rollator] 1 each MC DAILY #1 each 06/23/19 Albuterol Sulfate Inhaler - [Ventolin HFA Inhaler -] 2 inh PO Q4H PRN #1 inhaler MDD 8 08/13/19 Docusate Sodium [Colace] 100 mg PO DAILY #30 capsule 08/13/19 Polyethylene Glycol 3350 [Miralax (For Daily Use) -] 17 gm PO DAILY #1 bottle 08/13/19 Quinapril HCl [Accupril -] 40 mg PO BID #30 tablet 08/13/19 Tamsulosin HCl [Flomax] 0.4 mg PO DAILY #30 cap.er.24h 08/13/19 Asthma: Yes Diabetes: Yes GI Disorders: Yes (colon polyps, hx constipation) Disorders: Yes (thinks has prostate problems) HTN: Yes Hypercholesterolemia: Yes Kidney Stones: (KIDNEY FAILURE.) Liver Disease: Yes (HEP C. CIRRHOSIS.) - Surgical History Orthopedic Surgery: Yes (left hip partial hip replacement 2014) - Psycho-Social/Smoking History Smoking History: Current every day smoker Have you smoked in the past 12 months: Yes Number of Cigarettes Smoked Daily: 2 - Substance Abuse Hx (Audit-C & DAST Scrn) Score: In Men: 4 or > Positive; In Women: 3 or > Positive: 0 Screen Result (Pos requires Nsg. Audit-10AR): Negative Score: Yes response is considered Positive: 0 Screen Result (Positive result requires Nsg. DAST-10): Negative Review of Systems - Review of Systems Able to Perform ROS?: Yes Comments:: GENERAL/CONSTITUTIONAL: No fever or chills. No weakness HEAD, EYES, EARS, NOSE AND THROAT: No change in vision. No change in hearing. No sore throat CARDIOVASCULAR: No chest pain or shortness of breath RESPIRATORY: Denies cough, hemoptysis GASTROINTESTINAL: No diarrhea or constipation GENITOURINARY: No dysuria, frequency, or change in urination MUSCULOSKELETAL: No joint or muscle swelling or pain. No neck or back pain SKIN: No rash NEUROLOGIC: No headache, vertigo, loss of consciousness, or change in strength/sensation ENDOCRINE: No increased thirst. No abnormal weight change HEMATOLOGIC/LYMPHATIC: No anemia, easy bleeding, or history of blood clots ALLERGIC/IMMUNOLOGIC: No hives or skin allergy 01/27/20 21:10 Is the patient limited Pashto proficient: No *Physical Exam - Vital Signs Last Vital Signs Temp Pulse Resp BP Pulse Ox 99.2 F 68 17 163/96 99 01/27/20 20:42 01/27/20 20:42 01/27/20 20:42 01/27/20 20:42 01/27/20 20:42 - Physical Exam GENERAL: Awake, alert, and oriented to person/place/time, in no acute distress HEAD: No signs of trauma, normocephalic, atraumatic EYES: PERRLA, EOMI, sclera anicteric, conjunctiva clear ENT: Hearing grossly normal, nares patent, oropharynx clear without exudates. Moist mucosa LUNGS: No distress, speaks in full sentences, clear to auscultation bilaterally HEART: Regular rate and rhythm, normal S1 and S2, no murmurs appreciated, peripheral pulses normal and equal bilaterally ABDOMEN: Soft, mild epigastric TTP w/o rebound or guarding, normoactive bowel s ounds. No guarding, no rebound EXTREMITIES: Normal inspection, Normal range of motion, no edema. No clubbing or cyanosis NEUROLOGICAL: Cranial nerves II through XII grossly intact. Normal speech, no f ocal sensorimotor deficits SKIN: Warm, Dry 01/27/20 21:10 ED Treatment Course - LABORATORY CBC & Chemistry Diagram: 01/27/20 21:20 01/27/20 21:20 - RADIOLOGY Radiograph Interpretation: US/ABDOMEN US -LIMITED The liver is within normal limits in size measuring 17.3 cm in sagittal length with a slightly to moderately dense echotexture. Gallbladder is adequately distended with multiple intraluminal small mobile stones and wall thickening measuring 5.5 mm. No gross pericholecystic free fluid is present. No intra or extrahepatic bile duct dilatation is seen. The right kidney measures 10.4 cm sagittal length and appears unremarkable. Visualized portion of the pancreas appears unremarkable Visualized portion of the proximal abdominal aorta and inferior vena cava appear unremarkable. Normal flow in the main portal vein. IMPRESSION: Fatty liver versus hepatocellular disease. Please correlate with liver enzymes. Multiple gallstones with wall thickening and without evidence of pericholecystic free fluid. Correlate clinically to determine further evaluation. 01/27/20 23:12 Medical Decision Making - Medical Decision Making The pt is a 64M w/ a history of HCV, alcohol/heroine/Xanax dependence, cirrhosis, HTN, anxiety, asthma, MDD, GERD and depression who presents for evaluation of of 1 day of epigastric pain. Ddx: GERD; PUD; Pancreatitis; biliary dz; gastritis, not likely obstruction; consider ACS but no CP or SOB ED Course CMP, CBC, Lipase, UA ECG Ofirmev, Pepcid, Zofran, IVF 01/27/20 21:38 ECG w/ NSR; HR 63; QTc 423; no axis deviation; no acute ischemic changes K 5.9, but sample with hemolysis and no significant ECG changes Tbili and LFTs noted, will obtain RUQ US No leukocytosis No anemia Lipase wnl Trop I neg Will give Maalox and Viscous lido 01/27/20 22:50 RUQ US w/ GB stones; and GB wall thickening w/o pericholecystic fluid Possible symptomatic cholelithiasis versus chronic cholecystitis 01/27/20 23:13 Plan for admission for symptomatic cholelithiasis Pt amenable to staying for evaluation by general surgery 06/25/20 23:20 Pt signed out to [facility] Admitting Discharge - Discharge Information Problems reviewed: Yes Clinical Impression/Diagnosis: Symptomatic cholelithiasis Abdominal pain Qualifiers: Abdominal location: epigastric Qualified Code(s): R10.13 - Epigastric pain Nausea & vomiting Qualifiers: Vomiting type: unspecified Vomiting Intractability: non-intractable Qualified Code(s): R11.2 - Nausea with vomiting, unspecified Condition: Stable - Admission Yes - Follow up/Referral - Patient Discharge Instructions - Post Discharge Activity
[2020-01-27] MEDS ORDERED: ACETAMINOPHEN 1000 MG/100 ML VIAL (NON FORMULARY) IVPB ONE (21:28)
[2020-01-27 21:45] LABS: BASO % 0.5 % (0-2.0); EOS % 0.1 % (0-4.5); HEMATOCRIT 42.9 % (35.4-49); HEMOGLOBIN 14.5 GM/dL (11.7-16.9); LYMPH % 11.2 % (8-40); MCH 26.9 pg (25.7-33.7); MCHC 33.8 g/dl (32.0-35.9); MEAN CELL VOLUME 79.8 fl (80-96); MEAN PLT VOLUME 8.9 fl (7.5-11.1); MONO % 5.5 % (3.8-10.2); NEUT % 82.7 % (42.8-82.8); PLATELET COUNT 107 K/MM3 (134-434); RBC 5.38 M/mm3 (4.00-5.60); RDW 15.5 % (11.9-15.9); WHITE BLOOD COUNT 8.1 K/mm3 (4.0-10.0)
[2020-01-27 22:13] LABS: ALBUMIN 3.9 g/dl (3.4-5.0); BILIRUBIN,TOTAL 1.2 mg/dL (0.2-1); BLOOD UREA NITROGEN 13.2 mg/dL (7-18); CALCIUM 9.1 mg/dL (8.5-10.1); CREATININE 0.8 mg/dL (0.55-1.3); POTASSIUM 5.9 mmol/L (3.5-5.1); TOT PROT 8.3 g/dl (6.4-8.2)
[2020-01-27] MEDS ORDERED: ACETAMINOPHEN INJECTION 100 ML IVPB ONE (22:27)
[2020-01-27] MEDS ORDERED: MAG HYDROX/AL HYDROX/SIMETH 30 ML UNIT-DOSE CUP PO ONE (22:32)
[2020-01-27] MEDS ORDERED: LIDOCAINE VISCOUS 2% ORAL/TOP 100 ML BOTTLE MM ONE (22:32)
--- NOTE | 2020-01-27 22:47 | PDOC ---
Documentation entered by Teodora Kelly SCRIBE, acting as scribe for Namrata Montague MD. Namrata Montague MD: This documentation has been prepared by the Leticia gregory Adrianna, SCRIBE, under my direction and personally reviewed by me in its entirety. I confirm that the documentation accurately reflects all work, treatment, procedures, and medical decision making performed by me. Attending Attestation - Resident Resident Name: Duran Fortune - ED Attending Attestation I have performed the following: I have examined & evaluated the patient, The case was reviewed & discussed with the resident, I agree w/resident's findings & plan, Exceptions are as noted - HPI HPI: 64 y.o male, PMH of HCV, cirrhosis, substance abuse, HTN, HLD, DM asthma anxiety presents with abdominal pain for one day. Patient complains of epigastric abdominal pain, that is constant, burning and non-radiating. Denies any aggravating or alleviating factors. He endorses associated vomit and 4 episodes of NBNB vomit. No other complaints at this time. states his pain is constant , burning, started today, no mod factors. no radiation. has had similar sxs in the past and had a bleeding vein in his stomach ( variceal?) that required clipping. dark stools noted, but he believes was from his methadone. Allergies: metoclopramide, morphine, Fish Containing Products Surgical History: left hip partial hip replacement 02/2019 Social History: alcohol/heroine/Xanax dependence, current everyday smoker PCP: Dr. Grande 01/27/20 22:31 - Physicial Exam PE: 01/27/20 22:35 awake alert lungs clear bilat heart rrr no mrg abd soft epigsatric ttp nd ext wwp. no edema. no calf tenderness. nuero alert oriented x 3. - Medical Decision Making 01/27/20 22:45 64 yo male h/o hep c cirrhosis ebenzo abuse methadone., here with epigsatric pain, h/o prior gi bleed. plan labs lft lipase. differential gasritis, bleed, pud, pancreatitis cholecystitis. 01/27/20 22:47 pt lft mild elevated , lipase normal. will obtain ruq sono. potassiumm elevated but hemolyzed. Heart Score/ECG Review #1 ECG reviewed & interpreted by me at: 22:49 General ECG Interpretation: Sinus Rhythm, Normal Rate (63), Normal Intervals, No acute ischemic changes Compared to previous ECG there are: Other (TWi III only ,) Discharge - Discharge Information Problems reviewed: Yes Clinical Impression/Diagnosis: Abdominal pain - Follow up/Referral Referrals: Kathia Grande [Primary Care Provider] - - Patient Discharge Instructions - Post Discharge Activity
[2020-01-27] MEDS ORDERED: LIDOCAINE VISCOUS 2% ORAL/TOP 20 ML UNIT-DOSE CUP ONE (23:07)
[2020-01-27] MEDS ORDERED: MAG HYDROX/AL HYDROX/SIMETH 30 ML UNIT-DOSE CUP ONE (23:08)
[2020-01-28 01:14] LABS: EPI CELLS 1 /uL (0-25.1); HYALINE CASTS 0 /uL (0-3.1); URINE APPEARANCE CLEAR; URINE BACTERIA 2 /uL (0-1359); URINE BILIRUBIN NEGATIVE (NEGATIVE); URINE COLOR YELLOW; URINE GLUCOSE (UA) NEGATIVE (NEGATIVE); URINE KETONE NEGATIVE (NEGATIVE); URINE LEUK ESTERASE NEGATIVE (NEGATIVE); URINE NITRITE NEGATIVE (NEGATIVE); URINE PROTEIN NEGATIVE (NEGATIVE); URINE RBC 55 /uL (0-23.9); URINE WBC 1 /uL (0-25.8)
--- NOTE | 2020-01-28 01:36 | HP ---
CHIEF COMPLAINT: epigastric abd pain PCP: Harjinder HISTORY OF PRESENT ILLNESS: 64M w/ pmh of depression, anxiety, GERD, HCV(sp Melissa in 2013), cirrhosis, h/o polysubstance abuse(on methadone "90mg", former EtOH) presents to [facility] w/ complaint of burning epigastric abd pain x2d. Onset while lying down, the day prior to admission. Today, was "50 out of 10" in severity. Currently, pain is Zero, after getting ED meds(pepcid, lidocaine, zofran, ofirmev, mylanta). Had three episodes of vomitus, consisting of the beverage [place]. Was fearful of eating, bc burning pain was worse with food. Has had burning abd pain prior that would resolve with TUMS. Denies RUQ pain postprandially. Denies fever, chills, jaundice. Denies bitter/metallic taste in the mouth. Doesn't take NSAIDs on a regular basis. Doesn't recall ever testing for H pylori. Had EGD ~1 year ago, which revealed a "bleeding vein" that needed to be "clamped". Denies h/o peritocentesis. Usually ambulates with walker. ER course was notable for: (1) Na 131, K 5.9(hemolyzed) (2) Tbil 1.2, AST/ALT 53/28, AP 167, lipase 213 (3) US RUQ: dense echotexture liver, intraluminal small mobile stones, GB wall thickening 5.5mm, no pericholecystic fluid, no intra/extrahepatic bile duct dilitation (4) sp pepcid, lidocaine(viscous), zofran, Ofirmev, NS x1L, mylanta (5) Surg([facility]) contacted and thought that pt would not be an op candidate d/t cirrhosis, will evaluate in the AM Recent Travel: PAST MEDICAL HISTORY: as above PAST SURGICAL HISTORY: Left hip replacement Social History: Smoking: former 4ppd, from 22y/o to 5y/o. Quit smoking 30s ago Alcohol: drank regular for 30ys, stopped in 1999 Drugs: IVDU in his young adulthood, methadone Rx, xanax Rx Allergies metoclopramide [From Reglan] Allergy (Verified 01/27/20 20:51) Swelling morphine Allergy (Verified 01/27/20 20:51) "clots up veins" Fish Containing Products Adverse Reaction (Severe, Verified 01/27/20 20:51) Difficulty Breathing HOME MEDICATIONS: Home Medications Medication Instructions Recorded Alprazolam [Xanax] 2 mg PO BID 06/21/19 Walker [Ultra-Light Rollator] 1 each MC DAILY #1 each 06/23/19 Albuterol Sulfate Inhaler - 2 inh PO Q4H PRN #1 inhaler MDD 8 08/13/19 [Ventolin HFA Inhaler -] Docusate Sodium [Colace] 100 mg PO DAILY #30 capsule 08/13/19 Polyethylene Glycol 3350 [Miralax 17 gm PO DAILY #1 bottle 08/13/19 (For Daily Use) -] Quinapril HCl [Accupril -] 40 mg PO BID #30 tablet 08/13/19 Tamsulosin HCl [Flomax] 0.4 mg PO DAILY #30 cap.er.24h 08/13/19 REVIEW OF SYSTEMS CONSTITUTIONAL: Absent: fever, chills, diaphoresis, generalized weakness, malaise, loss of appetite, weight change HEENT: Absent: rhinorrhea, nasal congestion, throat pain, throat swelling, difficulty swallowing, mouth swelling, ear pain, eye pain, visual changes CARDIOVASCULAR: Absent: chest pain, syncope, palpitations, irregular heart rate, lightheadedness, peripheral edema RESPIRATORY: Absent: cough, shortness of breath, dyspnea with exertion, orthopnea, wheezing, stridor, hemoptysis GASTROINTESTINAL: epigastric burning pain. vomiting Absent: abdominal distension, nausea, diarrhea, constipation, melena, hematochezia GENITOURINARY: weak urine stream Absent: dysuria, frequency, urgency, hesitancy, hematuria, flank pain, genital pain MUSCULOSKELETAL: intermittent chronic hip pain Absent: myalgia, arthralgia, joint swelling, back pain, neck pain SKIN: Absent: rash, itching, pallor HEMATOLOGIC/IMMUNOLOGIC: Absent: easy bleeding, easy bruising, lymphadenopathy, frequent infections ENDOCRINE: Absent: unexplained weight gain, unexplained weight loss, heat intolerance, cold intolerance NEUROLOGIC: Absent: headache, focal weakness or paresthesias, dizziness, unsteady gait, seizure, mental status changes, bladder or bowel incontinence PSYCHIATRIC: Absent: anxiety, depression, suicidal or homicidal ideation, hallucinations. PHYSICAL EXAMINATION Vital Signs - 24 hr 01/27/20 20:42 Temperature 99.2 F Pulse Rate 68 Respiratory 17 Rate Blood Pressure 163/96 O2 Sat by Pulse 99 Oximetry (%) GENERAL: Awake, alert, and fully oriented, in no acute distress. HEAD: Normal with no signs of trauma. EYES: sclera anicteric, conjunctiva clear and w/o pallor EARS, NOSE, THROAT: Ears normal, nares patent, oropharynx clear without exudates. Moist mucous membranes. NECK: Normal range of motion, supple without lymphadenopathy, JVD, or masses. LUNGS: Breath sounds equal, clear to auscultation bilaterally. No wheezes, and no crackles. No accessory muscle use. HEART: Regular rate and rhythm, normal S1 and S2 without murmur, rub or gallop. ABDOMEN: Soft, nontender, not distended, no guarding, no rebound, no masses. Neg Arias's MUSCULOSKELETAL: No bony deformities or tenderness. UPPER EXTREMITIES: 2+ pulses, warm, well-perfused. No cyanosis. No clubbing. No peripheral edema. LOWER EXTREMITIES: 2+ pulses, warm, well-perfused. No calf tenderness. No peripheral edema. Left hip surgical scar NEUROLOGICAL: Normal speech. Laboratory Results - last 24 hr 01/27/20 01/27/20 01/28/20 21:20 21:20 00:50 WBC 8.1 RBC 5.38 Hgb 14.5 Hct 42.9 MCV 79.8 L MCH 26.9 MCHC 33.8 RDW 15.5 D Plt Count 107 L MPV 8.9 Absolute Neuts (auto) 6.7 Neutrophils % 82.7 D Lymphocytes % 11.2 D Monocytes % 5.5 Eosinophils % 0.1 Basophils % 0.5 Nucleated RBC % 0 Sodium 131 L Potassium 5.9 H Chloride 100 Carbon Dioxide 27 Anion Gap 5 L BUN 13.2 Creatinine 0.8 Est GFR (CKD-EPI)AfAm 110.96 Est GFR (CKD-EPI)NonAf 95.74 Random Glucose 139 H Calcium 9.1 Total Bilirubin 1.2 H AST 53 H ALT 28 Alkaline Phosphatase 167 H Total Protein 8.3 H Albumin 3.9 Lipase 213 Urine Color Yellow Urine Appearance Clear Urine pH 7.0 Ur Specific [place] 1.017 Urine Protein Negative Urine Glucose (UA) Negative Urine Ketones Negative Urine Blood 1+ H Urine Nitrite Negative Urine Bilirubin Negative Urine Urobilinogen 1.0 Ur Leukocyte Esterase Negative Urine WBC (Auto) 1 Urine RBC (Auto) 55 Urine Casts (Auto) 0 U Epithel Cells (Auto) 1 Urine Bacteria (Auto) 2 ASSESSMENT/PLAN: 64M w/ pmh of depression, anxiety, GERD, HCV(yvette Torres in 2013), Edson A Cirrhotic, h/o polysubstance abuse(on methadone "90mg", former EtOH) presents to [facility] w/ complaint of burning epigastric abd pain x2d w/a vomiting. Pain has subsided. Admitted for gastritis and/or GERD; less likely chronic cholecystitis. #burning epigastric abd pain --resolved ---likely gastritis/GERD, less likely acute on chronic cholecystitis > WBC 8.1 > Tbil 1.2, AST/ALT 53/28, AP 167, lipase 213 > US RUQ: dense echotexture liver, intraluminal small mobile stones, GB wall thickening 5.5mm, no pericholecystic fluid, no intra/extrahepatic bile duct dilitation > HIDA(06/19/19): no GB filling --evaluated by Madeline at that time, who recommended non-op mgmt; but might need future cholecystectomy at a tertiary care center d/t presence of cirrhosis - protonix BID, mylanta PRN - CLD, then ADAT - Surgery Consult(Danny): --ED conversation: likely will not operate d/t presence of cirrhosis. Will evaluate in the AM #HCV cirrhosis(? yvette Torres) --clinically, compensated > likely Edson A(~10% perioperative mortality) > Tbil 1.2, Alb 3.9, no ascites > INR --pending > Hepatitis panel --pending > HCV count --pending - will need outpatient US RUQ q6mo for HCC screening #elevated K --d/t hemolysis > K 5.9(hemolyzed) - fu AM BMP #h/o opioid usage - will need AM confirmation of methadone dose(?90mg) #h/o anxiety - will need AM confirmation of xanax dose(?2mg BID) #chronic HTN - need med rec for home Accupril FEN - no mIVF - CLD, ADAT DVT PPX - S[facility] Family Medical History Family History: Unremarkable Visit type - Emergency Visit Emergency Visit: Yes ED Registration Date: 01/27/20 Care time: The patient presented to the Emergency Department on the above date and was hospitalized for further evaluation of their emergent condition. - New Patient This patient is new to me today: Yes Date on this admission: 01/28/20 - Critical Care Critical Care patient: No ATTENDING PHYSICIAN STATEMENT I saw and evaluated the patient. I reviewed the resident's note and discussed the case with the resident. I agree with the resident's findings and plan as documented. SUBJECTIVE: OBJECTIVE: ASSESSMENT AND PLAN:
[2020-01-28] MEDS ORDERED: ONDANSETRON 4 MG/2 ML VIAL IVPUSH PRN (01:49)
[2020-01-28] MEDS ORDERED: HEPARIN NA (PORCINE) 5,000 UNITS/ML 1ML VIAL SQ SCH (02:00)
[2020-01-28] MEDS: PANTOPRAZOLE 40 MG TABLET PO SCH ×2 (02:02→10:29)
[2020-01-28] MEDS ORDERED: MAG HYDROX/AL HYDROX/SIMETH 30 ML UNIT-DOSE CUP PO PRN (02:09)
--- NOTE | 2020-01-28 02:17 | PN ---
Teaching Attending Note Name of Resident: Bartolo Leyva ATTENDING PHYSICIAN STATEMENT I saw and evaluated the patient. I reviewed the resident's note and discussed the case with the resident. I agree with the resident's findings and plan as documented. SUBJECTIVE: 64 y.o male, PMHx of HCV (did not complete tx), cirrhosis, substance abuse, HTN, HLD, DM asthma anxiety presents with epigastric abdominal pain for one day associated with NBNB vomiting. OBJECTIVE: VS: Afeb BP 163/96 Gen: in NAD Lungs CTA Heart S1 S2 no m/r/g Abdomen soft non tender, obese no fluid wave no shifting dullness Ext no edema , RUE 2 plaque psoriasis lesions Neuro moving all ext nonfocal neuro exam ASSESSMENT AND PLAN: VS: Afeb BP 163/96 Labs: No leukocytosis no anmiea BMP: K 5.9 Hemolyzed BUN/Creat 13.2/0.8 Tbili 1.2 AST/ALT 53/28 ALP 167 Suspected Gastritis vs Biliary Colic Pt not taking protonix as was instructed initiate Protonix 40 mg BID Clear liquid diet advance as tolerated Surgery consulted from ED U/S reviewed Has had workup in past MRCP-No choledecholithasis but poor surgical candidate HIDA- in 2 hr no Gallbladder filing HCV with Cirrohsis hx varices with banding in 2018 -compensated Child-Martinez Class A Treatment unsure of clearance- obtain VL Monitor LFT Monitor INR, Albumin Obtain records for varices and banding procedure H/H wnl and no GIB F/U appt for Cirrhosis and Hep C as outpt HTN/HLD DM Asthma Ventolin PRN Q 4 hr ISS and HbA1C Can initiate Amlodipine 5 mg for HTN avoid FROILAN-I and ARB Does not know medications reconcile
--- NOTE | 2020-01-28 07:38 | PN ---
Progress Note (short form) - Note Progress Note: surgery 64m with hep c and etoh cirrhosis, non compliant, history of variceal banding, presents with abd pain, gallstones on u/s, normal wbc, no shift, no signs of acute cholecystitisi on u/s. I informed ED physician that due to cirrhotic disease pt not a candidate for surgery at a [facility]. recommend medical management,...... perc drainage or transfer if fails.
[2020-01-28] MEDS ORDERED: HEPARIN NA (PORCINE) 5,000 UNITS/ML 1ML VIAL ONE ×2 (08:01→14:01)
[2020-01-28] MEDS: HEPARIN NA (PORCINE) 5,000 UNITS/ML 1ML VIAL SQ SCH ×2 (08:09→14:04)
[2020-01-28 08:25] LABS: BASO % 0.2 % (0-2.0); EOS % 0.4 % (0-4.5); HEMATOCRIT 39.2 % (35.4-49); HEMOGLOBIN 13.3 GM/dL (11.7-16.9); MCHC 33.9 g/dl (32.0-35.9); MEAN CELL VOLUME 79.7 fl (80-96); MEAN PLT VOLUME 8.8 fl (7.5-11.1); MONO % 14.6 % (3.8-10.2); NEUT % 63.8 % (42.8-82.8); PLATELET COUNT 88 K/MM3 (134-434); RBC 4.92 M/mm3 (4.00-5.60); RDW 15.3 % (11.9-15.9); WHITE BLOOD COUNT 5.8 K/mm3 (4.0-10.0)
[2020-01-28 08:32] LABS: INR 1.23 (0.83-1.09); PROTHROMBIN TIME (PATIENT) 14.5 SEC (9.7-13.0)
[2020-01-28 08:35] LABS: ACTIVATED PTT 32.6 SECONDS (25.2-36.5)
[2020-01-28 09:05] LABS: ALBUMIN 3.5 g/dl (3.4-5.0); BLOOD UREA NITROGEN 11.7 mg/dL (7-18); CALCIUM 8.7 mg/dL (8.5-10.1); POTASSIUM 4.1 mmol/L (3.5-5.1)
[2020-01-28 09:10] LABS: BILIRUBIN,TOTAL 1.5 mg/dL (0.2-1); CREATININE 0.7 mg/dL (0.55-1.3); MAGNESIUM 2.2 mg/dL (1.8-2.4); PHOSPHOROUS 3.8 mg/dL (2.5-4.9); TOT PROT 7.3 g/dl (6.4-8.2)
[2020-01-28] MEDS ORDERED: QUINAPRIL HCL 40 MG TABLET (FP) PO SCH (10:00)
[2020-01-28] MEDS ORDERED: QUINAPRIL HCL 10 MG TABLET (FP) ONE (10:10)
[2020-01-28] MEDS ORDERED: PANTOPRAZOLE 40 MG TABLET ONE (10:10)
[2020-01-28] MEDS ORDERED: ALPRAZolam 2 MG TABLET PO PRN (10:43)
[2020-01-28] MEDS ORDERED: METHADONE HCL 10 MG TABLET PO SCH (10:45)
--- NOTE | 2020-01-28 10:45 | PN ---
Progress Note, Physician Chief Complaint: Epigastric pain History of Present Illness: Had EG in 2018 at [facility] with questionable banding. Admitted in 06/2019 for similar complaints Was supposed to follow up with GI outpatient but never did Seen by Surgery- no acute cholecystitis on U/S COVID still pending On Clear liquid diet-tolerating well Wants to go home - Current Medication List Current Medications: Active Medications Al Hydroxide/Mg Hydroxide (Mylanta Oral Suspension -) 30 ml PO Q6H PRN PRN Reason: DYSPEPSIA Heparin Sodium (Porcine) (Heparin -) 5,000 unit SQ TID [facility] Last Admin: 01/28/20 08:09 Dose: 5,000 unit Documented by: Ondansetron HCl (Zofran Injection) 4 mg IVPUSH Q6H PRN PRN Reason: NAUSEA AND/OR VOMITING Pantoprazole Sodium (Protonix -) 40 mg PO BID [facility] Last Admin: 01/28/20 10:29 Dose: 40 mg Documented by: Quinapril HCl (Accupril -) 40 mg PO BID [facility] Last Admin: 01/28/20 10:29 Dose: 40 mg Documented by: - Objective Vital Signs: Vital Signs Temperature 98.8 F 01/28/20 04:50 Pulse Rate 58 L 01/28/20 04:50 Respiratory Rate 15 01/28/20 04:50 Blood Pressure 151/73 01/28/20 04:50 O2 Sat by Pulse Oximetry (%) 98 01/28/20 04:50 Constitutional: Yes: Well Nourished, No Distress, Calm Cardiovascular: Yes: Regular Rate and Rhythm Respiratory: Yes: Regular, CTA Bilaterally Gastrointestinal: Yes: Normal Bowel Sounds, Soft Genitourinary: Yes: WNL Musculoskeletal: Yes: WNL Extremities: Yes: WNL Edema: No Peripheral Pulses WNL: Yes Neurological: Yes: Alert, Oriented Psychiatric: Yes: Alert, Oriented Labs: CBC, BMP 01/28/20 06:45 01/28/20 06:45 INR, PTT INR 1.23 (0.83-1.09) H 01/28/20 06:45 Problem List - Problems (1) Cholelithiasis Assessment/Plan: -No evidence of cholecystitis -Would need repeat CMP outpatient, if bilirubin rising, would need MRCP Problems reviewed: Yes Code(s): K80.20 - CALCULUS OF GALLBLADDER W/O CHOLECYSTITIS W/O OBSTRUCTION (2) Abdominal pain Assessment/Plan: -resolved -U/S abd + gallstones without evidence of cholecystitis -Continue PPI outpatient -Zofran PRN Problems reviewed: Yes Code(s): R10.9 - UNSPECIFIED ABDOMINAL PAIN Qualifiers: Abdominal location: epigastric Qualified Code(s): R10.13 - Epigastric pain (3) Nausea & vomiting Assessment/Plan: -resolved Problems reviewed: Yes Code(s): R11.2 - NAUSEA WITH VOMITING, UNSPECIFIED Qualifiers: Vomiting type: unspecified Vomiting Intractability: non-intractable Qualified Code(s): R11.2 - Nausea with vomiting, unspecified Assessment/Plan See problem list
[2020-01-28] MEDS ORDERED: METHADONE 80 MG, METHADONE 10 MG PO SCH (11:00)
[2020-01-28] MEDS ORDERED: METHADONE HCL 40 MG DISPERSABLE TABLET ONE (11:11)
[2020-01-28] MEDS ORDERED: METHADONE HCL 10 MG TABLET ONE (11:11)
[2020-01-28] MEDS ORDERED: ALPRAZolam 1 MG TABLET ONE (11:11)
--- NOTE | 2020-01-28 11:37 | CON.GI ---
Consult Consult Specialty:: GI Referred by:: Chely Matute NP Reason for Consultation:: Abdominal pain - History of Present Illness Chief Complaint: Nausea, vomiting, chest burning History of Present Illness: 64M admitted through [facility] ER for evaluation of N/V chest burning. Currently asymptomatic. Received Protonix and zofran. Abdominal USrevealed gallstones with wall thickening without evidence of acute cholecystitis. Denies back or RUQ pain. Seen by fruit harvester machine operator Dr. Steiner 06/22 for ? acute / chronic cholecystitis (+ HIDA, MRI/MRCP at that time revealing cirrhotic liver, normal biliary tract, no liver mass) and by surgery. No surgery planned at that time. ? seen by surgery this admission as there is a note in the chart by Dr. Delgado. Advised transfer to tertiary care center or percutaneous drainage if there was concern for cholecystitis. Patient gives vague history of being treated for Hep C at [facility] a few years back, being treated with harvoni, cleared the virus but then may have been reinfected a year ago with blood work suggestive of that. He alludes to having ? retreatment at [facility] with multiple pills, however, ? if he completed this. Also alludes to having had possible EGD with banding a year or so ago at [facility]. He is very vague about this history. No rectal bleeding, melena, hematemesis. he has not seen his PMD Dr. Kathia Grande in some time and sounds like he has poor medical follow-up. He believes that he may have had a colonoscopy but vague about when and where, possibly [facility]. - History Source History Provided By: Patient, Medical Record Limitations to Obtaining History: Poor Historian - Past Medical History Cardio/Vascular: Yes: HTN Pulmonary: Yes: Asthma Gastrointestinal: Yes: Other (h/o venous clipping on EGD) Hepatobiliary: Yes: Cirrhosis, Hepatitis C Psych: Yes: Addictions (heroin), Anxiety, Depression Musculoskeletal: Yes: Chronic low back pain (L4-5 back problems) Dermatology: Yes: Psoriasis - Past Surgical History Past Surgical History: Yes: Colonoscopy (possibly 2019 @ [facility]), Joint Replacement ([facility]), Upper Endoscopy (Possibly 2019 @ [facility]) - Alcohol/Substance Use Hx Alcohol Use: Yes (prev etoh use; stopped 2007) History of Substance Use: reports: Heroin (snort and IV use - last few days ago ("someone gave me something that made me very sick")), Prescription (xanax). 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 History of Recent Travel: No Home Medications - Allergies Allergies/Adverse Reactions: Allergies Allergy/AdvReac Type Severity Reaction Status Date / Time metoclopramide [From Reglan] Allergy Swelling Verified 01/27/20 20:51 morphine Allergy "clots up Verified 01/27/20 20:51 veins" Fish Containing Products AdvReac Severe Difficulty Verified 01/27/20 20:51 Breathing - Home Medications Home Medications: Ambulatory Orders Alprazolam [Xanax] 2 mg PO BID 06/21/19 Walker [Ultra-Light Rollator] 1 each MC DAILY #1 each 06/23/19 Albuterol Sulfate Inhaler - [Ventolin HFA Inhaler -] 2 inh PO Q4H PRN #1 inhaler MDD 8 08/13/19 Docusate Sodium [Colace] 100 mg PO DAILY #30 capsule 08/13/19 Polyethylene Glycol 3350 [Miralax (For Daily Use) -] 17 gm PO DAILY #1 bottle 08/13/19 Quinapril HCl [Accupril -] 40 mg PO BID #30 tablet 08/13/19 Tamsulosin HCl [Flomax] 0.4 mg PO DAILY #30 cap.er.24h 08/13/19 Family Medical History Other Family History: Father: : [place]. Mother: Alive: Healthy. 1 brother: healthy. "some people may have cancer in his family" Review of Systems - Review of Systems Constitutional: reports: Chills. denies: Fever, Unintentional Wgt. Loss Cardiovascular: reports: Chest Pain (burning, resolved) Respiratory: denies: Cough Gastrointestinal: reports: Abdominal Pain (burning, upper abdomen, resolved), Nausea (resolved). denies: Diarrhea, Melena, Rectal Bleeding Physical Exam-GI Vital Signs: Vital Signs Temperature 99.0 F 01/28/20 11:03 Pulse Rate 62 01/28/20 11:03 Respiratory Rate 16 01/28/20 11:03 Blood Pressure 145/79 01/28/20 11:03 O2 Sat by Pulse Oximetry (%) 95 01/28/20 11:03 Constitutional: Yes: Calm Eyes: No: Sclera Icterus Cardiovascular: Yes: Regular Rate and Rhythm. No: Murmur Respiratory: Yes: CTA Bilaterally Gastrointestinal Inspection: No: Distention, Scars ...Auscultate: Yes: Normoactive Bowel Sounds ...Palpate: Yes: Soft. No: Hepatomegaly, Splenomegaly, Tenderness (Of note, negative mccormick's sign as well) ...Percussion: No: Tympanitic Edema: No (No LE edema) Neurological: Yes: Alert, Oriented. No: Asterix[employer] Labs: CBC, BMP 01/28/20 06:45 01/28/20 06:45 INR, PTT INR 1.23 (0.83-1.09) H 01/28/20 06:45 Hepatic Panel Total Bilirubin 1.5 mg/dL (0.2-1) H 01/28/20 06:45 AST 22 U/L (15-37) 01/28/20 06:45 ALT 24 U/L (13-61) 01/28/20 06:45 Alkaline Phosphatase 152 U/L (45-117) H 01/28/20 06:45 Albumin 3.5 g/dl (3.4-5.0) 01/28/20 06:45 Problem List - Problems (1) Nausea & vomiting Assessment/Plan: Along with chest burning. Resolved. ? gastroenteritis that resolved, component of gastroparesis worsening GERD in setting of chronic opioid use. US with thickened GB wall and stones without evidence of acute cholecystitis. Negative mccormick's on exam, no leukocytosis/fevers that would be suggestive of ongoing acute cholecystitis. Previous + HIDA. ? chronic cholecystitis. Advise: Monitopr LFTs. ALP has been chronically elevated. If ALP / Bilirubin continue to rise, then MRCP to evaluate for CBD stone Clear liquids, advance as tolerated if LFT's remain stable Protonix 40mg once daily for 14 days Code(s): R11.2 - NAUSEA WITH VOMITING, UNSPECIFIED Qualifiers: Vomiting type: unspecified Vomiting Intractability: non-intractable Qualified Code(s): R11.2 - Nausea with vomiting, unspecified (2) Cirrhosis Assessment/Plan: ETOH / Hep C Cirrhosis Overall poor medical follow-up Advise: That follow-up is arranged with his PMD prior to discharge Hep C quantitative PCR to confirm if he has relapsed ior been reinfected. Of note this was negative 07/22 Has poor insight into his disease. Discussed potentially life threatning complications of liver disease like but not limited to bleeding disorder, ascites, encephalopathy, esophageal/gastric varices that can bleed, liver cancer, need for liver transplant. Advised continued complete alcohol cessation Needs Q 6 month hepatic US to screen for HCC He shows interest in following up at [facility] for continued evaluation and treatment of his chronic liver disease. Contact information for Dr. Emilia Donnelly, transplant ecology teacher at [facility]: [phone]. Should contact office prior to discharge to arrange follow-up and have patient call after discharge as well. Code(s): K74.60 - UNSPECIFIED CIRRHOSIS OF LIVER
[2020-01-28 14:46] VITALS: BP 138/65; PULSE 70; TEMP 98.2
--- NOTE | 2020-01-28 14:53 | EKG ---
Test Reason : Blood Pressure : / mmHG Vent. Rate : 063 BPM Atrial Rate : 063 BPM P-R Int : 148 ms QRS Dur : 086 ms QT Int : 414 ms P-R-T Axes : 018 009 019 degrees QTc Int : 423 ms NORMAL SINUS RHYTHM NORMAL ECG WHEN COMPARED WITH ECG OF 09-SEP-2019 19:49, SINUS RHYTHM HAS REPLACED JUNCTIONAL RHYTHM Confirmed by ANA GAYTAN MD ([id number]) on 01/28/2020 2:53:13 PM Referred By: Confirmed By:ANA GAYTAN MD
[2020-01-29 19:07] LABS: HEP B CORE AB, TOT Positive (Negative)
== END 2020-01-28 15:15 | disposition home or self-care (01) | DRG 445 ==
LOC: JER 20:36 → JERBED 23:54 → UNDODISIN 01-28 03:15
PROVIDERS: ADMIT Internal Medicine; ATTEND Family Medicine
DX: K80.20 Calculus of gallbladder without cholecystitis without obstruction (principal); F11.20 Opioid dependence, uncomplicated; K29.60 Other gastritis without bleeding; F41.9 Anxiety disorder, unspecified; I10 Essential (primary) hypertension; K21.9 Gastro-esophageal reflux disease without esophagitis; F32.9 Major depressive disorder, single episode, unspecified; F10.20 Alcohol dependence, uncomplicated; F17.210 Nicotine dependence, cigarettes, uncomplicated; B19.20 Unspecified viral hepatitis C without hepatic coma; J45.909 Unspecified asthma, uncomplicated; K70.30 Alcoholic cirrhosis of liver without ascites; E11.9 Type 2 diabetes mellitus without complications
CPT/HCPCS: 36415; 76705-TC; 80053; 81003; 83690; 83735; 84100; 84484; 85025; 85610; 85730; 86704; 86706; 86707; 86708; 86709; 87086; 87340; 87522; 93005; 93010; 99285-25; J0131; J1644; U0003

== ENCOUNTER 2020-03-30 05:22 | Emergency (ER) | payer OTHER ==
--- NOTE | 2020-03-30 05:59 | PDOC ---
Attending Attestation - Resident Resident Name: Moreno Palmer - ED Attending Attestation I have performed the following: I have examined & evaluated the patient, The case was reviewed & discussed with the resident, I agree w/resident's findings & plan - HPI HPI: 03/30/20 06:49 see resident hpi - Physicial Exam PE: 03/30/20 06:50 see resident exam - Medical Decision Making 03/30/20 06:469-[id number] male initially requesting his anxiolytics and pain medication stating he ran out now stating he fell and hit his head yesterday CT scans of the head and cervical spine show no acute injury Plan for DC home, patient is due at his methadone clinic in the morning He is alert oriented x4 neuro intact Discharge - Discharge Information Problems reviewed: Yes Clinical Impression/Diagnosis: Fall Qualifiers: Encounter type: initial encounter Qualified Code(s): W19.XXXA - Unspecified fall, initial encounter - Follow up/Referral Referrals: Sebas Mckinley MD [Primary Care Provider] - - Patient Discharge Instructions - Post Discharge Activity
--- NOTE | 2020-03-30 06:09 | PDOC ---
History of Present Illness - General Stated Complaint: BACK PAIN Time Seen by Provider: 03/30/20 05:43 - History of Present Illness Initial Comments: 03/30/20 06:06 The pt is a 64M w/ a history of HCV, alcohol/heroine/Xanax dependence, cirrhosis, HTN, anxiety, asthma, MDD, GERD, depression, and back pain who presents for acute on chronic lower back pain. States he takes methadone, xanax, and aspercreme, and "ran out" of methadone (upon clarification, he states that he gets daily methadone at a clinic each morning). Denies incontinence or retention, fever, chills, shooting pain down the leg. States his PCP ordered him for an MRI,, but when he showed up, he was not in the system and could not get it. Also states he fell and hit his head in the shower yesterday and has a headache. Denies LOC, vision changes, weakness, chest pain, lightheadedness, palpitations, SOB. ROS GENERAL/CONSTITUTIONAL: No fever or chills. No weakness. HEAD, EYES, EARS, NOSE AND THROAT: No change in vision. No ear pain or discharge. No sore throat. CARDIOVASCULAR: No chest pain or shortness of breath RESPIRATORY: No cough, wheezing, or hemoptysis. GASTROINTESTINAL: No nausea, vomiting, diarrhea or constipation. GENITOURINARY: No dysuria, frequency, or change in urination. MUSCULOSKELETAL: back pain. No joint or muscle swelling or pain. No neck pain. SKIN: No rash NEUROLOGIC: headache. No vertigo, loss of consciousness, or change in strength/sensation. ENDOCRINE: No increased thirst. No abnormal weight change HEMATOLOGIC/LYMPHATIC: No anemia, easy bleeding, or history of blood clots. ALLERGIC/IMMUNOLOGIC: No hives or skin allergy. PE GENERAL: Awake, alert, and fully oriented, in no acute distress HEAD: No signs of trauma, normocephalic, atraumatic EYES: PERRLA, EOMI, sclera anicteric, conjunctiva clear ENT: Auricles normal inspection, hearing grossly normal, nares patent, oropharynx clear without exudates. Moist mucosa NECK: Normal ROM, supple, no lymphadenopathy, JVD, or masses LUNGS: No distress, speaks full sentences, clear to auscultation bilaterally HEART: Regular rate and rhythm, normal S1 and S2, no murmurs, rubs or gallops, peripheral pulses normal and equal bilaterally. ABDOMEN: Soft, nontender, normoactive bowel sounds. No guarding, no rebound. No masses EXTREMITIES : Normal inspection, Normal range of motion, no edema. No clubbing or cyanosis. NEUROLOGICAL: Cranial nerves II through XII grossly intact. Normal speech, no focal sensorimotor deficits SKIN: Warm, Dry, normal turgor, no rashes or lesions noted BACK: left thoracic and lumbar paraspinal tenderness MDM 64yo M with a history of HCV, alcohol/heroine/Xanax dependence, cirrhosis, HTN, anxiety, asthma, MDD, GERD, depression, and back pain who presents for acute on chronic lower back pain as well as a headache after a fall in the shower yesterday. Differential includes ICH. Low suspicion for acute spinal injury given history and physical. Good story for mechanical fall, and low suspicion for cardiac or neurological etiology. -CT head and c-spine -ibuprofen 600mg 03/30/20 07:05 -CT head and c-spine negative for acute pathology DC home to go to methadone clinic Past History - Medical History Allergies/Adverse Reactions: Allergies Allergy/AdvReac Type Severity Reaction Status Date / Time metoclopramide [From Reglan] Allergy Swelling Verified 01/27/20 20:51 morphine Allergy "clots up Verified 01/27/20 20:51 veins" Fish Containing Products AdvReac Severe Difficulty Verified 01/27/20 20:51 Breathing Home Medications: Ambulatory Orders Alprazolam [Xanax] 2 mg PO BID 06/21/19 Walker [Ultra-Light Rollator] 1 each MC DAILY #1 each 06/23/19 Albuterol Sulfate Inhaler - [Ventolin HFA Inhaler -] 2 inh PO Q4H PRN #1 inhaler MDD 8 08/13/19 Docusate Sodium [Colace] 100 mg PO DAILY #30 capsule 08/13/19 Polyethylene Glycol 3350 [Miralax 119 gm Btl -] 17 gm PO DAILY #1 bottle 08/13/19 Tamsulosin HCl [Flomax] 0.4 mg PO DAILY #30 cap.er.24h 08/13/19 Alprazolam [Xanax] 2 mg PO Q12H PRN tablet 01/28/20 Mag Hydrox/Al Hydrox/Simeth [Mylanta Oral Suspension -] 30 ml PO Q6H PRN #1200 ml 01/28/20 Methadone [Dolophine -] 90 mg PO DAILY@0600 tablet 01/28/20 Ondansetron [Zofran *Odt*] 4 mg SL TID PRN #21 od.tablet 01/28/20 Pantoprazole Sodium [Protonix -] 40 mg PO BID #30 tablet.ec 01/28/20 Quinapril HCl [Accupril -] 40 mg PO DAILY #30 tablet 01/28/20 Anemia: No Asthma: Yes Cancer: No Cardiac Disorders: No CVA: No COPD: No CHF: No Diabetes: Yes GI Disorders: Yes (colon polyps, hx constipation) Disorders: Yes (thinks has prostate problems) HTN: Yes Hypercholesterolemia: Yes Kidney Stones: (KIDNEY FAILURE.) Liver Disease: Yes (HEP C. CIRRHOSIS.) Seizures: No Thyroid Disease: No - Surgical History Orthopedic Surgery: Yes (left hip partial hip replacement 2014) - Immunization History Immunization Up to Date: No - Psycho-Social/Smoking History Smoking History: Unknown if ever smoked Have you smoked in the past 12 months: Yes Number of Cigarettes Smoked Daily: 2 'Breaking Loose' booklet given: 06/21/19 Discharge - Discharge Information Problems reviewed: Yes Clinical Impression/Diagnosis: Back pain, Headache Fall Qualifiers: Encounter type: initial encounter Qualified Code(s): W19.XXXA - Unspecified fall, initial encounter - Follow up/Referral Referrals: Sebas Mckinley MD [Primary Care Provider] - - Patient Discharge Instructions Additional Instructions: You were seen in the ER for back pain and for a headache after a fall. We did a CT of your head and neck which did not show any new problems. We gave you ibuprofen for your back pain and sent you out to go to your methadone clinic. Please follow up with your primary doctor within three days. Please return to the ED if you have continued or worsening symptoms, fever, incontinence, or any other reason. - Post Discharge Activity
[2020-03-30] MEDS ORDERED: IBUPROFEN 600 MG TABLET (FP) PO ONE ×2 (06:11→06:14)
[2020-03-30 06:44] VITALS: BMI 23.7
[2020-03-30 07:13] VITALS: BP 120/74; PULSE 61; TEMP 97.9
== END 2020-03-30 08:37 | disposition home or self-care (01) ==
LOC: JER 05:22
DX: M54.5 Low back pain (principal); W19.XXXA Unspecified fall, initial encounter
CPT/HCPCS: 70450-TC; 72125-TC; 99285-25; U0003

== ENCOUNTER 2020-11-19 03:04 | Emergency (ER) | payer OTHER ==
[2020-11-19 03:19] VITALS: TEMP 98.4; BMI 21.7
[2020-11-19] MEDS ORDERED: MAG HYDROX/AL HYDROX/SIMETH 30 ML UNIT-DOSE CUP PO ONE (03:21)
[2020-11-19] MEDS ORDERED: LACTATED RINGERS SOLUTION 1000 ML INFUS.BAG IV ONE (03:21)
[2020-11-19] MEDS ORDERED: ONDANSETRON 4 MG/2 ML VIAL IVPUSH ONE (03:21)
[2020-11-19] MEDS ORDERED: TAMSULOSIN HCL 0.4 MG CAP PO ONE (03:34)
[2020-11-19] MEDS ORDERED: QUINAPRIL HCL 40 MG TABLET PO ONE (03:34)
[2020-11-19] MEDS ORDERED: FAMOTIDINE 10 MG TABLET PO ONE (04:06)
[2020-11-19] MEDS ORDERED: TAMSULOSIN HCL 0.4 MG CAP ONE (04:06)
[2020-11-19] MEDS ORDERED: MAG HYDROX/AL HYDROX/SIMETH 30 ML UNIT-DOSE CUP ONE (04:07)
[2020-11-19] MEDS ORDERED: ONDANSETRON 4 MG/2 ML VIAL ONE (04:07)
[2020-11-19] MEDS ORDERED: FAMOTIDINE 20 MG/50 ML IVPB 20 MG/50 ML MG IVPB ONE ×2 (04:07→04:37)
[2020-11-19] MEDS ORDERED: SODIUM CHLORIDE 0.9% 500 ML INFUS.BAG IV ONE (04:10)
[2020-11-19 04:19] LABS: BASO % 0.4 % (0-2.0); EOS % 0.2 % (0-4.5); HEMATOCRIT 42.4 % (35.4-49); HEMOGLOBIN 14.6 GM/dL (11.7-16.9); LYMPH % 25.7 % (8-40); MCH 28.9 pg (25.7-33.7); MCHC 34.5 g/dl (32.0-35.9); MEAN CELL VOLUME 83.7 fl (80-96); MEAN PLT VOLUME 8.6 fl (7.5-11.1); MONO % 10.4 % (3.8-10.2); NEUT % 63.3 % (42.8-82.8); PLATELET COUNT 91 K/MM3 (134-434); RBC 5.07 M/mm3 (4.00-5.60); RDW 14.5 % (11.9-15.9)
[2020-11-19 04:31] LABS: CHLORIDE 102 mmol/L (98-107); SODIUM 135 mmol/L (136-145)
[2020-11-19 04:34] LABS: ALBUMIN 3.9 g/dl (3.4-5.0); ANION GAP 8 MMOL/L (8-16); BLOOD UREA NITROGEN 15.7 mg/dL (7-18); CALCIUM 9.2 mg/dL (8.5-10.1); CO2 25 mmol/L (21-32); GLUCOSE,RANDOM 122 mg/dL (74-106); LIPASE 125 U/L (73-393)
[2020-11-19 04:37] LABS: CREATININE 0.8 mg/dL (0.55-1.3); SGOT/AST 111 U/L (15-37); SGPT/ALT 102 U/L (13-61)
[2020-11-19 04:39] LABS: BILIRUBIN,TOTAL 1.6 mg/dL (0.2-1); TOT PROT 7.8 g/dl (6.4-8.2)
[2020-11-19 04:40] LABS: ALK PHOS 221 U/L (45-117)
[2020-11-19 05:37] VITALS: BP 157/98; PULSE 68
== END 2020-11-19 05:52 | disposition home or self-care (01) ==
LOC: JER 03:04
PROC: 3E033GC Introduction of Other Therapeutic Substance into Peripheral Vein, Percutaneous Approach (ICD-10-PCS; principal; 2020-11-19)
PROC: 3E033GC Introduction of Other Therapeutic Substance into Peripheral Vein, Percutaneous Approach (ICD-10-PCS; 2020-11-19)
DX: R10.13 Epigastric pain (principal); R11.0 Nausea
CPT/HCPCS: 36415; 80053; 82962; 83690; 84484; 85025; 93005; 93010; 99285-25

== ENCOUNTER 2022-02-15 01:28 | Emergency (ER) | payer OTHER ==
[2022-02-15 01:41] VITALS: BMI 20.9
[2022-02-15] MEDS ORDERED: FAMOTIDINE 20 MG/50 ML IVPB 20 MG/50 ML MG IVPB ONE (04:00)
[2022-02-15] MEDS ORDERED: SODIUM CHLORIDE 0.9% 500 ML INFUS.BAG IV ONE (04:00)
[2022-02-15 05:36] VITALS: BP 137/90; PULSE 58; TEMP 97.8
[2022-02-15 05:37] LABS: BASO % 0.2 % (0-2.0); EOS % 0.5 % (0-4.5); HEMATOCRIT 42.4 % (35.4-49); HEMOGLOBIN 14.5 GM/dL (11.7-16.9); MCHC 34.2 g/dl (32.0-35.9); MEAN CELL VOLUME 81.8 fl (80-96); MEAN PLT VOLUME 8.3 fl (7.5-11.1); NEUT % 63.3 % (42.8-82.8); PLATELET COUNT 81 10^3/uL (134-434); RBC 5.18 M/mm3 (4.00-5.60); RDW 13.8 % (11.9-15.9); WHITE BLOOD COUNT 6.2 K/mm3 (4.0-10.0)
[2022-02-15 05:46] LABS: INR 1.17 (0.83-1.09); PROTHROMBIN TIME (PATIENT) 13.5 SEC (9.7-13.0)
[2022-02-15] MEDS ORDERED: FAMOTIDINE 10 MG/ML VIAL IVPB ONE (05:46)
[2022-02-15 05:50] LABS: ACTIVATED PTT 32.9 SECONDS (25.2-36.5)
[2022-02-15 05:56] LABS: CHLORIDE 99 mmol/L (98-107); SODIUM 135 mmol/L (136-145)
[2022-02-15 05:58] LABS: ANION GAP 7 MMOL/L (8-16); CALCIUM 8.9 mg/dL (8.5-10.1); CO2 29 mmol/L (21-32); GLUCOSE,RANDOM 121 mg/dL (74-106)
[2022-02-15 05:59] LABS: ALBUMIN 4.2 g/dl (3.4-5.0); BLOOD UREA NITROGEN 17.5 mg/dL (7-18)
[2022-02-15 06:01] LABS: CREATININE 0.7 mg/dL (0.55-1.3); SGOT/AST 52 U/L (15-37); SGPT/ALT 61 U/L (13-61)
[2022-02-15 06:03] LABS: TOT PROT 8.1 g/dl (6.4-8.2)
[2022-02-15 06:04] LABS: ALK PHOS 214 U/L (45-117)
== END 2022-02-15 07:19 | disposition home or self-care (01) ==
LOC: JER 01:28
PROC: 3E033GC Introduction of Other Therapeutic Substance into Peripheral Vein, Percutaneous Approach (ICD-10-PCS; principal; 2022-02-15)
DX: T60.4X1A Toxic effect of rodenticides, accidental (unintentional), initial encounter (principal)
CPT/HCPCS: 0241U-QW; 36415; 71045-TC-FY; 80053; 80307; 84484; 85025; 85610; 85730; 86850; 86900; 86901; 93005; 93010; 96374; 99285-25

== ENCOUNTER 2022-02-19 22:48 | Emergency (ER) | payer OTHER ==
[2022-02-19 23:09] VITALS: BP 108/72; PULSE 68; TEMP 98.4; BMI 24.4
[2022-02-20 01:16] LABS: BASO % 0.4 % (0-2.0); EOS % 0.9 % (0-4.5); HEMATOCRIT 43.1 % (35.4-49); HEMOGLOBIN 14.8 GM/dL (11.7-16.9); LYMPH % 33.5 % (8-40); MCH 28.2 pg (25.7-33.7); MCHC 34.2 g/dl (32.0-35.9); MEAN CELL VOLUME 82.3 fl (80-96); MEAN PLT VOLUME 8.4 fl (7.5-11.1); MONO % 7.4 % (3.8-10.2); NEUT % 57.8 % (42.8-82.8); PLATELET COUNT 87 10^3/uL (134-434); RBC 5.24 M/mm3 (4.00-5.60); RDW 13.7 % (11.9-15.9); WHITE BLOOD COUNT 6.5 K/mm3 (4.0-10.0)
[2022-02-20 01:27] LABS: INR 1.15 (0.83-1.09); PROTHROMBIN TIME (PATIENT) 13.3 SEC (9.7-13.0)
[2022-02-20 01:29] LABS: ACTIVATED PTT 33.4 SECONDS (25.2-36.5)
== END 2022-02-20 02:06 | disposition home or self-care (01) ==
LOC: JER 22:48
DX: D69.6 Thrombocytopenia, unspecified (principal)
CPT/HCPCS: 0241U-QW; 36415; 85025; 85610; 85730; 99283-25